=== PATIENT | female | born 1945 | race African-American/Black ===

== ENCOUNTER 2016-06-21 13:24 | Inpatient (IN) ==
[2016-06-21] MEDS ORDERED: ETOMIDATE 20 MG/10 ML VIAL IV ONE (13:26)
[2016-06-21] MEDS ORDERED: VECURONIUM 10 MG VIAL IV ONE ×2 (13:26→15:07)
[2016-06-21] MEDS ORDERED: SODIUM CHLORIDE 0.9% 500 ML IV STA (13:35)
[2016-06-21] MEDS ORDERED: ETOMIDATE 20 MG/10 ML VIAL IV STA (13:39)
[2016-06-21] MEDS ORDERED: VECURONIUM 10 MG VIAL IV STA ×2 (13:39→15:11)
--- NOTE | 2016-06-21 13:41 | EKG Report ---
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
--- NOTE | 2016-06-21 13:53 | XRay Report ---
Portable chest Date: 06/21/2016 Clinical history: Alteration of consciousness Comparison: 11/09/2015 Technique: Portable AP supine chest Findings: The heart is borderline in size with uncoiling of the aorta. Chronic scarring in the lungs with minimal atelectasis. The endotracheal tube is in satisfactory position. Nasogastric tube seen entering the stomach. Stable mediastinum and osseous structures. Impression: Endotracheal tube and nasogastric tube in satisfactory position. Chronic scarring in the lungs with minimal atelectasis. PROCEDURE INTERPRETED AT [facility] DEPARTMENT OF RADIOLOGY Final Report Signed by: Dr. Elvia De La Cruz
[2016-06-21 14:03] LABS: Basophils # 0.1 10*3/uL (0.0-0.2); Basophils % 0.5 % (0.0-0.8); Eosinophils # 0.7 10*3/uL (0.0-0.87); Eosinophils % 6.8 % (0.00-10.9); Hematocrit 46.1 VOL% (35.7-47.0); Hemoglobin 14.3 GM/DL (12.0-16.0); Immature Granulocytes % 0.5 %; Immature Granulocytes Absolute 0.05 #; Lymphocytes # 4.9 10*3/uL (1.4-4.0); Lymphocytes % 44.7 % (21.3-54.2); Mean Corpuscular Hemoglobin 30 PG (27-34); Mean Corpuscular Volume 97.3 FL (87-102); Mean Platelet Volume 10.8 FL (9.6-12.0); Monocytes # 0.8 10*3/uL (0.11-0.8); Monocytes % 6.9 % (1.7-12.7); Neutrophils # 4.4 10*3/uL (1.4-7.4); Neutrophils % 40.6 % (38.7-73.9); Platelet Count 244 T/CUMM (130-400); Red Blood Count 4.74 MC/CUMM (3.8-5.5); Red Cell Distribution Width 14.1 % (9.3-17.3); White Blood Count 10.9 T/CUMM (4-12)
--- NOTE | 2016-06-21 14:08 | Emergency Department Note ---
Archie Culp Meredith, am scribing for, and in the presence of, Sreedhar Hensley MD 13: 44. Shellie Culp James D, MD, personally performed the services described in this documentation, ascribed by Sis Almanza in my presence, and it is both accurate and complete . Arrival - Arrival Chief Complaint: Altered Mental Status ED Nursing Triage Note: ALTERED MENTAL STATUS Mode of Arrival: Stretcher Limitations: Altered Mental Status (obtunded) Source: EMS, Old Records Reviewed, RN Notes Reviewed Time Seen by Provider: 06/21/16 13:35 - History of Present Illness HPI Narrative: Pt is a 71 y/o black female brought to the ED by EMS for c/o altered level of consciousness (GCS:9). EMS reports witnessed seizure on their arrival. She has a history of CAD, HTN, [place], TIA, NIDDM, HLD, gout, RA, and right kidney removal. Onset (ago): minute(s) Allergies/Adverse Reactions: Allergies Allergy/AdvReac Type Severity Reaction Status Date / Time codeine Allergy Palpitation Verified 11/08/15 12:53 s Home Medications: Home Medications Medication Instructions Recorded Confirmed Type Amlodipine Besylate 2.5 mg PO DAILY 11/08/15 11/08/15 History Atenolol/Chlorthalidone 1 tablet PO DAILY 11/08/15 11/08/15 History [Atenolol-Chlorthalidone 50-25] Gabapentin 300 mg PO BID 11/08/15 11/08/15 History Glimepiride 2 mg PO DAILY 11/08/15 11/08/15 History Isosorbide Mononitrate [Isosorbide 30 mg PO DAILY 11/08/15 11/08/15 History Mononitrate ER] Metformin HCl 1,000 mg PO BID 11/08/15 11/08/15 History Nitroglycerin Sl Tab [Nitrostat] 0.4 mg SL Q5M PRN 11/08/15 11/08/15 History Pregabalin [Lyrica] 75 mg PO DAILY 11/08/15 11/08/15 History Ranolazine [Ranexa] 500 mg PO BID 11/08/15 11/08/15 History Valsartan 80 mg PO DAILY 11/08/15 11/08/15 History buPROPion SR [Wellbutrin Sr] 150 mg PO DAILY 11/08/15 11/08/15 History Aspirin Tab 325 mg PO DAILY #30 tablet 11/14/15 Rx Ondansetron Tab [Zofran Tab] 4 mg PO Q4H PRN #30 tablet 11/14/15 Rx Review of System - Review of System ROS unobtainable: due to mental status (obtunded) - Review of System Neurological: Present: as per HPI, other (seizure activity and AMS) Medical,Surgical,& Family Hx - Medical History Cardio: History of: CAD, Hypertension, [place] Neurology: History of: TIA Endocrine: History of: Diabetes Mellitus (NIDDM), Dyslipidemia Rheumatology: History of;: Gout, Rheumatoid Arthritis - Surgical History Cardiac Surgeries: Sugical HX of: Cardiac Catheterization (with 2 or 3 stents ( patient is unsure)) Thoracic Surgeries: Surgical HX of;: Nephrectomy (left kidney removal (1986)) Reproductive Surgeries: Surgical HX of;: Hysterectomy - Family History Family History: Reports;: Family Diabetes (sisters), Family Heart Disease ( sister) - Social History Smoking Status: Smoker, status unknown Exam Physical Examination: GENERAL: This is an obese black female. Patient is obtunded. VITAL SIGNS: Temperature: 98.2, Pulse: 115, Respirations: 6, Blood pressure: 209 /112, O2 Satuartion: 81 HEENT: Head is normocephalic and atraumatic. Gaze preference to the left. Oropharynx is benign with moist mucous membranes. NECK: Neck is soft and supple There are no masses. There is no lymphadenopathy. LUNGS: Lungs are clear to auscultation bilaterally. Chest rises symmetrically. CV: Heart is tachycardic and regular rhythm without murmurs, rubs, or gallops. ABDOMEN: Abdomen is soft. There are no abnormal masses palpated. There is no organomegaly. Bowel sounds are present and active. SKIN: Skin is warm and dry. No rash. EXTREMITIES: There is no pedal edema. NEUROLOGIC: Left arm and leg flaccid paralysis. Incoherent speech. Vital Signs: Vital Signs Temperature 98.2 F 06/21/16 13:24 Pulse Rate 86 06/21/16 14:25 Respiratory Rate 12 06/21/16 14:25 Blood Pressure 169/109 06/21/16 14:25 O2 Sat by Pulse Oximetry 100 06/21/16 14:25 Course - Consultations Consultation #1: Hospitalist was consulted. Pt will be admitted to their service. Time: 14:59 Results - Labs CBC & BMP: 06/21/16 13:51 06/21/16 13:51 Lab Results: I have reviewed the patients labs Labs: Laboratory Tests 06/21/16 06/21/16 13:51 13:51 WBC 10.9 RBC 4.74 Hgb 14.3 Hct 46.1 MCHC 31.0 L Plt Count 244 Lymph # (Auto) 4.9 H INR 1.0 PT Patient/Control Mix 10.0 Circ Anticoag PTT 24.6 Laboratory Tests 06/21/16 13:51 INR 1.0 Laboratory Tests 06/21/16 06/21/16 13:51 14:27 ABG pH 7.300 L ABG pCO2 40.8 ABG pO2 314.0 H ABG HCO3 19.5 L ABG Total CO2 17.6 L ABG O2 Saturation 99.4 ABG Base Excess -6.1 L Ammonia 36 H Laboratory Tests 06/21/16 14:18 Urine pH 6.0 Ur Specific [place] 1.009 Urine Protein >=500 Urine Glucose (UA) 50 Urine Blood Small Urine Urobilinogen < 2.0 H Urine RBC 2 Urine WBC <1 Urine Bacteria Occasional Laboratory Tests 06/21/16 13:51 Sodium 141 Potassium 4.0 Chloride 108 H Carbon Dioxide 19 L Anion Gap 18.0 H BUN 16 Creatinine 2.00 H Glucose 194 H Ammonia 36 H Total Protein 8.4 H Globulin 4.6 H Albumin/Globulin Ratio 0.8 L - EKG EKG results: interpreted by ERMD - Impressions EKG: Atrial flutter with rate of 116, ST segment depression anteriorly and laterally. - Diagnostic Findings Procedure: Chest x-ray: report reviewed by me (Endotracheal tube and nasogastric tube in satisfactory position. Chronic scarring in the lungs with minimal atelectasis. ), CT: report reviewed by me (Head: No acute intracranial process as compared to the previous study. Chornic right MCA infarct. Periventriclar small vessle disease. ) Critical Care Time Critical Care Time: Yes Total Critical Care Time: 60 Attestation: Pt was sedated and intubated. She had initial vent management. Pt was given Keppra and Labetalol. Disposition Clinical Impression: Altered mental status, Seizure, Essential (primary) hypertension Disposition: Still a Patient Condition: Critical
[2016-06-21 14:13] LABS: Partial Thromboplastin Time 24.6 SECS (0-40)
[2016-06-21] MEDS ORDERED: LABETALOL 20 MG/4 ML SYRINGE IV STA (14:15)
[2016-06-21] MEDS ORDERED: LABETALOL 20 MG/4 ML SYRINGE IV ONE (14:16)
[2016-06-21 14:22] LABS: Ammonia 36 UMOL/L (11-32)
[2016-06-21 14:29] LABS: Apearance,Urine CLEAR (Clear); Bacteria,Urine Occasional /HPF (Few); Bilirubin,Urine Negative (Negative); Blood, Urine Small mg/dL (Negative); Glucose,Urine (UA) 50 mg/dL (Negative); Ketones,Urine Negative (Negative); Nitrite,Urine Negative (Negative); Protein,Urine >=500 MG/DL; RBC,Urine 2 /HPF (0-4); Urine Color Straw (Yellow); Urine Specific Gravity 1.009 (1.001-1.035); Urine Urobilinogen < 2.0 EU/DL (0.2-1.0); WBC,Urine <1 /HPF (0-6)
[2016-06-21 14:30] LABS: ABG Base Excess -6.1 MMOL/L (-2.5-2.5); ABG HCO3 19.5 MMOL/L (20-26); ABG Oxygen Saturation 99.4 % (95-100); ABG PCO2 40.8 MM HG (35-48); ABG TCO2 17.6 MMOL/L (23-27)
[2016-06-21] MEDS ORDERED: MIDAZOLAM 2 MG/2 ML VIAL IV STA ×2 (14:30→14:46)
[2016-06-21] MEDS ORDERED: MIDAZOLAM 2 MG/2 ML VIAL ONE ×2 (14:30→14:46)
--- NOTE | 2016-06-21 14:35 | CT Report ---
History: Mental status changes Date: 06/21/2016 Study: CT head without contrast Comparison exam: November 08, [address] sections were obtained through the head without IV contrast. Total DLP measures 1073.1 mGy*cm. The ventricles are midline in position without evidence of hydrocephalus. There is a wedge-shaped area of chronic ischemia in a right MCA distribution involving the right temporoparietal area as before, measuring at least 6 cm maximum diameter. There is no parenchymal hemorrhage or mass effect or gross CT evidence of acute cortical stroke. There is no extra-axial hematoma. There is a small amount of ill-defined low density in the periventricular white matter without mass effect compatible with changes small vessel disease. There is no acute extra-axial hematoma. There is no acute abnormality of the calvarium. The partially visualized paranasal sinuses and mastoid air cells are clear. There is moderate calcification in the distal carotid arteries bilaterally. Impression: No acute intracranial process as compared to the previous study. Chronic right MCA infarct. Periventricular small vessel disease PROCEDURE INTERPRETED AT [facility] DEPARTMENT OF RADIOLOGY Final Report Signed by: Dr. Sandhya Mathew
[2016-06-21 14:38] LABS: Alanine Aminotransferase 19 U/L (13-56); Albumin 3.8 G/DL (3.4-5.0); Alkaline Phosphatase 100 U/L (45-117); Aspartate Amino Transferase 17 U/L (0-37); Bilirubin,Total < 0.39 MG/DL (0.2-1.0); Blood Urea Nitrogen 16 MG/DL (7-18); Calcium 9.4 MG/DL (8.5-10.1); Glucose 194 MG/DL (74-106); Osmolality,Calculated 286.3 MOS/KG (273-304); Sodium 141 MMOL/L (136-145); Total Protein 8.4 G/DL (6.4-8.3)
[2016-06-21] MEDS ORDERED: LABETALOL 100 MG/20 ML VIAL IV ONE (14:56)
[2016-06-21] MEDS ORDERED: LABETALOL 100 MG/20 ML VIAL IV STA (14:57)
[2016-06-21] MEDS ORDERED: levETIRAcetam 500 MG/5 ML VIAL IV ONE ×2 (15:05→15:06)
[2016-06-21] MEDS ORDERED: ACETAMINOPHEN 325 MG TABLET PO PRN (15:08)
[2016-06-21] MEDS ORDERED: DOCUSATE SODIUM 100 MG CAPSULE PO PRN (15:08)
[2016-06-21] MEDS ORDERED: ONDANSETRON 4 MG/2 ML VIAL IV PRN (15:08)
[2016-06-21] MEDS: MIDAZOLAM 100 MG in SODIUM CHLORIDE 0.9% 80 ML IV SCH (15:13)
[2016-06-21] MEDS ORDERED: LABETALOL 100 MG/20 ML VIAL IV PRN (15:49)
--- NOTE | 2016-06-21 15:58 | Hospitalist History & Physical ---
Assessment and Plan - Time spent with patient Time spent with patient: Greater than 30 minutes (1) Altered mental status Status: Acute Assessment and plan: Given the history I am concerned she has had another significant stroke, especially with her acute presentation and her elevated blood pressure. Also must consider postictal after witnessed seizure. I am admitting to ICU, start IV Cinthia, Neurology consult and repeat CT in the am. Her BP is elevated but I don't want to lower to quickly in light of concerns for acute ischemic stroke but could her HTN being uncontrolled caused her presentation. Current Visit: Yes Qualifiers: Altered mental status type: unspecified Qualified Code(s): R41.82 - Altered mental status, unspecified (2) Seizure Status: Acute Assessment and plan: She did present with witness activity as stated start IV Cinthia, Neuro consult and PRN meds Current Visit: Yes (3) Hypertensive urgency, malignant Status: Acute Assessment and plan: This could have cause symptoms but also must consider new CVA and don't want to lower BP to rapidly. Current Visit: Yes (4) IDDM (insulin dependent diabetes mellitus) Status: Acute Assessment and plan: will want to keep control in light of her presentation as studies have shown CBG 141-180 have better outcomes in case of acute infarct. Sliding scale insulin Current Visit: Yes History of Present Illness Chief complaint: Seizure, ALOC History of present illness: Ms. Mcconnell is a 71 year old female with several medical problems who presented via EMS after having a witnessed seizure. According to her daughter who is at her bedside she told other family members earlier that she did not feel well and they suggested to her to lay down. From the history she was heading towards the bathroom when she may have developed LOC but was caught by family members and lowered to the floor. EMS was called and per their report she was actively seizing. She was brought here at [place] where ER staff states she had a left gazed and pupils did react. She was then intubated for airway protection. Home Medications Medication Instructions Recorded Confirmed Type Atenolol/Chlorthalidone 1 tablet PO DAILY 11/08/15 11/08/15 History [Atenolol-Chlorthalidone 50-25] Glimepiride 2 mg PO DAILY 11/08/15 11/08/15 History Isosorbide Mononitrate [Isosorbide 30 mg PO DAILY 11/08/15 11/08/15 History Mononitrate ER] Metformin HCl 1,000 mg PO BID 11/08/15 11/08/15 History Nitroglycerin Sl Tab [Nitrostat] 0.4 mg SL Q5M PRN 11/08/15 11/08/15 History Pregabalin [Lyrica] 75 mg PO DAILY 11/08/15 11/08/15 History Ranolazine [Ranexa] 500 mg PO BID 11/08/15 11/08/15 History Valsartan 80 mg PO DAILY 11/08/15 11/08/15 History buPROPion SR [Wellbutrin Sr] 150 mg PO DAILY 11/08/15 11/08/15 History Aspirin Tab 325 mg PO DAILY #30 tablet 11/14/15 Rx Atorvastatin [Lipitor] 20 mg PO DAILY 06/21/16 06/21/16 History amLODIPine [Norvasc] 10 mg PO DAILY 06/21/16 06/21/16 History Allergies Allergy/AdvReac Type Severity Reaction Status Date / Time codeine Allergy Palpitation Verified 11/08/15 12:53 s Medical,Surgical,& Family Hx - Medical History Cardio: History of: CAD, Hypertension, [place] Neurology: History of: Cerebrovascular Accident, TIA Endocrine: History of: Diabetes Mellitus (NIDDM), Dyslipidemia Rheumatology: History of;: Gout, Rheumatoid Arthritis - Surgical History Cardiac Surgeries: Sugical HX of: Cardiac Catheterization (with 2 or 3 stents ( patient is unsure)) Thoracic Surgeries: Surgical HX of;: Nephrectomy (left kidney removal (1986)) Reproductive Surgeries: Surgical HX of;: Hysterectomy - Family History Family History: Reports;: Family Diabetes (sisters), Family Heart Disease ( sister) - Social History Smoking Status: Smoker, status unknown Frequency of Alcohol Use: Unknown Type of Drug Use: Unknown Marital Status: Unknown Lives With:: Children Functional capacity: independent ambulation ROS unobtainable: due to mental status Exam - Constitutional Vitals: Period Temp Pulse Resp BP Sys/Marin Pulse Ox Last 24 Hr 80-81 12-12 145-177/92-113 100-100 General appearance: over weight Exam: sedated and intubated black female with a left gaze - Head Head exam: Present: normocephalic, atraumatic - Eye Pupils: Present: KAYLEN - Respiratory Respiratory exam: Present: rhonchi - Cardiovascular Cardiovascular exam: Present: tachycardia - GI/Abdominal GI/Abdominal exam: Present: hypoactive bowel sounds, soft - Neurological Exam Neurological exam: Present: altered, other - Skin Skin exam: Present: warm, dry, intact Results - Labs CBC & BMP: 06/21/16 13:51 06/21/16 13:51 - EKG EKG results: sinus rhythm EKG shows: tachycardia, sinus rhythm - Diagnostic Findings Procedure: Chest x-ray: report reviewed by me (ET in place with chronic scarring ), CT: report reviewed by me (chronic right MCA CVA) Quality Measures - Stroke Onset of Symptoms Date: 06/21/16 Contraindication Not Initiating IV-tPA: Sz @ onset - postictal
[2016-06-21] MEDS ORDERED: GLUCAGON 1 MG VIAL IM PRN (16:12)
[2016-06-21] MEDS ORDERED: DEXTROSE 50% 25 GM/50 ML VIAL IV PRN (16:12)
[2016-06-21] MEDS ORDERED: LABETALOL 20 MG/4 ML SYRINGE IV PRN (16:17)
[2016-06-21] MEDS ORDERED: ACETAMINOPHEN 325 MG SUPP RECTAL PRN (16:18)
[2016-06-21] MEDS: ENOXAPARIN 40 MG/0.4 ML SYRINGE SUBCUT SCH (17:48)
[2016-06-21] MEDS: CLINDAMYCIN INJ 900 MG in PREMIX 1 EACH IV SCH (17:49)
[2016-06-21] MEDS ORDERED: INSULIN LISPRO 100 UNIT/ML SUBCUT SCH (18:00)
[2016-06-21] MEDS: INSULIN LISPRO 100 UNIT/ML SUBCUT SCH (18:28)
[2016-06-21] MEDS ORDERED: SODIUM CHLORIDE 0.9% 500 ML IV ONE (21:45)
[2016-06-21] MEDS: PANTOPRAZOLE 40 MG VIAL IV SCH (22:25)
[2016-06-22] MEDS: INSULIN LISPRO 100 UNIT/ML SUBCUT SCH ×4 (01:00→18:02)
[2016-06-22] MEDS: CLINDAMYCIN INJ 900 MG in PREMIX 1 EACH IV SCH ×3 (01:15→16:49)
[2016-06-22 05:22] LABS: Basophils % 0.4 % (0.0-0.8); Eosinophils # 0.3 10*3/uL (0.0-0.87); Eosinophils % 2.7 % (0.00-10.9); Hematocrit 35.3 VOL% (35.7-47.0); Immature Granulocytes % 0.3 %; Immature Granulocytes Absolute 0.03 #; Lymphocytes # 2.5 10*3/uL (1.4-4.0); Lymphocytes % 22.6 % (21.3-54.2); Mean Corpuscular HGB Conc 32.3 GM/DL (32-36); Mean Corpuscular Hemoglobin 30 PG (27-34); Mean Corpuscular Volume 93.4 FL (87-102); Mean Platelet Volume 11.8 FL (9.6-12.0); Monocytes # 1.1 10*3/uL (0.11-0.8); Monocytes % 9.9 % (1.7-12.7); Neutrophils % 64.1 % (38.7-73.9); Red Cell Distribution Width 14.4 % (9.3-17.3); White Blood Count 10.9 T/CUMM (4-12)
[2016-06-22 05:24] LABS: Hemoglobin 11.4 GM/DL (12.0-16.0); Platelet Count 180 T/CUMM (130-400); Red Blood Count 3.78 MC/CUMM (3.8-5.5)
[2016-06-22 05:33] LABS: Albumin 2.8 G/DL (3.4-5.0); Bilirubin,Total 0.4 MG/DL (0.2-1.0); Calcium 8.5 MG/DL (8.5-10.1); Osmolality,Calculated 290.7 MOS/KG (273-304); Total Protein 6.1 G/DL (6.4-8.3)
[2016-06-22 05:49] LABS: Risk Ratio 4.49; VLDL CHOLESTEROL 41.8 MG/DL
[2016-06-22] MEDS: MIDAZOLAM 100 MG in SODIUM CHLORIDE 0.9% 80 ML IV SCH ×2 (06:40→18:51)
--- NOTE | 2016-06-22 06:49 | CT Report ---
CT head/brain wo con Indication: Seizure. Stroke. Comparison: CT head 06/21/2016. Technique: CT of the brain was performed without administration of intravenous contrast. Findings: Hypoattenuation of cortex and white matter within the right parietal lobe is again demonstrated with little interval progression or evolution since comparison. There has been some increase in hypoattenuation within the right thalamus. Significant motion artifact is present. Little change in the brain is otherwise suggested given the degree of motion. The basal cisterns are patent. No significant abnormality is demonstrated to involve the posterior fossa or cerebellum. Orbits and globes demonstrate no evidence of significant pathology. Air-fluid levels within the sphenoid sinuses and mucosal thickening of posterior ethmoid air cells is noted bilaterally. No significant abnormality is demonstrated to involve the mastoid air cells. The calvarium and overlying soft tissues demonstrate no evidence of acute pathology. Impression: 1. Significant motion artifact blurs the cerebral hemispheres. New hypoattenuation in the right thalamus and deep white matter of the right parietal lobe is suggested which may reflect evolution of infarction. Cortical infarction of the right parietal lobe is otherwise unchanged. 06/22/2016 6:36 AM PROCEDURE INTERPRETED AT [facility] DEPARTMENT OF RADIOLOGY Final Report Signed by: Dr. Gianni Nelson
--- NOTE | 2016-06-22 07:36 | Pulmonology Consult Note ---
Assessment and Plan (1) Altered mental status Status: Acute Assessment and plan: Altered mental status due to seizure and apparent new thalamic stroke. Defer to neurology. Continue with airway control and mechanical ventilation until neurologic status is improved. Current Visit: Yes (2) IDDM (insulin dependent diabetes mellitus) Status: Acute Assessment and plan: Sliding scale insulin. Current Visit: Yes (3) Seizure Status: Acute Assessment and plan: Patient had witnessed grand mal seizure and is on anti-seizure medications. Defer to neurology. Current Visit: Yes (4) CVA (cerebral vascular accident) Status: Acute Assessment and plan: Brain CT this morning indicates a right thalamic stroke superimposed on previous right parietal hemisphere stroke. Again defer to neurology. Current Visit: No Qualifiers: CVA mechanism: unspecified Qualified Code(s): I63.9 - Cerebral infarction, unspecified (5) Acute respiratory failure Status: Acute Assessment and plan: Patient is on the ventilator and intubated due to decreased level of consciousness. She is on empiric antibiotics for possible aspiration. We will adjust ventilator. PO2 is in the 300s on 100% oxygen. She has a mildly acidotic pH. Will increase minute ventilation and reduce FiO2. Current Visit: Yes History of Present Illness Chief complaint: decreased level of consciousness and seizure History of present illness: Ms. Mcconnell is a 71 year old female who came into the emergency room by ambulance. Apparently she became faint walking across for was caught by her family and then had a seizure. She was intubated in the emergency room and is now on the ventilator. Initial brain CT showed evidence of an old right parietal stroke. CT this morning suggests a superimposed right thalamic stroke. She is diabetic. She has a history of a known previous stroke. She is on antibiotics for possible aspiration pneumonia. I was asked to see her to follow her from a pulmonary standpoint. Home Medications Medication Instructions Recorded Confirmed Type Atenolol/Chlorthalidone 1 tablet PO DAILY 11/08/15 06/21/16 History [Atenolol-Chlorthalidone 50-25] Glimepiride 2 mg PO DAILY 11/08/15 06/21/16 History Isosorbide Mononitrate [Isosorbide 30 mg PO DAILY 11/08/15 06/21/16 History Mononitrate ER] Metformin HCl 1,000 mg PO BID 11/08/15 06/21/16 History Nitroglycerin Sl Tab [Nitrostat] 0.4 mg SL Q5M PRN 11/08/15 06/21/16 History Pregabalin [Lyrica] 75 mg PO DAILY 11/08/15 06/21/16 History Ranolazine [Ranexa] 500 mg PO BID 11/08/15 06/21/16 History Valsartan 80 mg PO DAILY 11/08/15 06/21/16 History buPROPion SR [Wellbutrin Sr] 150 mg PO DAILY 11/08/15 06/21/16 History Aspirin Tab 325 mg PO DAILY #30 tablet 11/14/15 06/21/16 Rx Atorvastatin [Lipitor] 20 mg PO DAILY 06/21/16 06/21/16 History amLODIPine [Norvasc] 10 mg PO DAILY 06/21/16 06/21/16 History Allergies Allergy/AdvReac Type Severity Reaction Status Date / Time codeine Allergy Palpitation Verified 11/08/15 12:53 s ROS unobtainable: due to endotracheal tube, due to mental status Exam (Pulmon) H&P - Constitutional Vitals: Period Temp Pulse Resp BP Sys/Marin Pulse Ox Last 24 Hr 97.0 F-97.6 F 73-86 10-16 81-192/57-118 100-100 Exam: Vital signs are normal. Oxygen saturation 100%. Pupils are small but react sluggishly to light. She is moving about when off sedation, but presently on Versed infusion. Orotracheal tube in place. Neck supple no bruits. Chest reveals a few rhonchi on the right side. Heart normal rate rhythm no murmurs. Abdomen soft no masses. Extremities no clubbing cyanosis edema. Patient not spontaneously moving any extremities. Medical,Surgical,& Family Hx - Medical History Cardio: History of: CAD, Hypertension, [place] Neurology: History of: Cerebrovascular Accident, TIA Endocrine: History of: Diabetes Mellitus (NIDDM), Dyslipidemia Rheumatology: History of;: Gout, Rheumatoid Arthritis - Surgical History Cardiac Surgeries: Sugical HX of: Cardiac Catheterization (with 2 or 3 stents ( patient is unsure)) Thoracic Surgeries: Surgical HX of;: Nephrectomy (left kidney removal (1986)) Reproductive Surgeries: Surgical HX of;: Hysterectomy - Family History Family History: Reports;: Family Diabetes (sisters), Family Heart Disease ( sister) - Social History Smoking Status: Smoker, status unknown Frequency of Alcohol Use: Unknown Type of Drug Use: Unknown Results - Labs CBC & BMP: 06/22/16 04:26 06/22/16 04:26 Lab Results: I have reviewed the past 24 hour labs - Diagnostic Findings Procedure: Chest x-ray: image reviewed by me (ET tube in good position. Chronic patchy scarring in right upper lobe.) Quality Measures - Stroke Onset of Symptoms Date: 06/21/16
[2016-06-22 08:14] LABS: Allen Test Positive; Pt O2 Delivery Device Ventilator
[2016-06-22 08:15] LABS: ABG Base Excess -1.8 MMOL/L (-2.5-2.5); ABG HCO3 22.9 MMOL/L (20-26); ABG Oxygen Saturation 99.1 % (95-100); ABG PCO2 27.6 MM HG (35-48); ABG PH 7.481 (7.35-7.45); ABG TCO2 18.3 MMOL/L (23-27)
[2016-06-22] MEDS: CIPROFLOXACIN INJ 200 MG in PREMIX 1 EACH IV SCH ×2 (08:47→20:46)
[2016-06-22] MEDS: PANTOPRAZOLE 40 MG VIAL IV SCH ×2 (08:47→20:44)
--- NOTE | 2016-06-22 09:00 | Neurology Consult Note ---
History of Present Illness History of present illness: Patient is unable to provide me any history. History basically obtained from the chart. Ms. Mcconnell is a 71 year old female with several medical problems who presented via EMS after having a witnessed seizure. According to her daughter she did not feel well and they suggested to her to lay down. From the history she was heading towards the bathroom when she may have developed LOC but was caught by family members and lowered to the floor. EMS was called and per their report she was actively seizing. She was brought here at [place] where ER staff states she had a left gazed and pupils did react. She was then intubated for airway protection. She has not had anymore seizures. Home Medications Medication Instructions Recorded Confirmed Type Atenolol/Chlorthalidone 1 tablet PO DAILY 11/08/15 06/21/16 History [Atenolol-Chlorthalidone 50-25] Glimepiride 2 mg PO DAILY 11/08/15 06/21/16 History Isosorbide Mononitrate [Isosorbide 30 mg PO DAILY 11/08/15 06/21/16 History Mononitrate ER] Metformin HCl 1,000 mg PO BID 11/08/15 06/21/16 History Nitroglycerin Sl Tab [Nitrostat] 0.4 mg SL Q5M PRN 11/08/15 06/21/16 History Pregabalin [Lyrica] 75 mg PO DAILY 11/08/15 06/21/16 History Ranolazine [Ranexa] 500 mg PO BID 11/08/15 06/21/16 History Valsartan 80 mg PO DAILY 11/08/15 06/21/16 History buPROPion SR [Wellbutrin Sr] 150 mg PO DAILY 11/08/15 06/21/16 History Aspirin Tab 325 mg PO DAILY #30 tablet 11/14/15 06/21/16 Rx Atorvastatin [Lipitor] 20 mg PO DAILY 06/21/16 06/21/16 History amLODIPine [Norvasc] 10 mg PO DAILY 06/21/16 06/21/16 History Allergies Allergy/AdvReac Type Severity Reaction Status Date / Time codeine Allergy Palpitation Verified 11/08/15 12:53 s ROS unobtainable: due to endotracheal tube Medical,Surgical,& Family Hx - Medical History Cardio: History of: CAD, Hypertension, [place] Neurology: History of: Cerebrovascular Accident, TIA Endocrine: History of: Diabetes Mellitus (NIDDM), Dyslipidemia Rheumatology: History of;: Gout, Rheumatoid Arthritis - Surgical History Cardiac Surgeries: Sugical HX of: Cardiac Catheterization (with 2 or 3 stents ( patient is unsure)) Thoracic Surgeries: Surgical HX of;: Nephrectomy (left kidney removal (1986)) Reproductive Surgeries: Surgical HX of;: Hysterectomy - Family History Family History: Reports;: Family Diabetes (sisters), Family Heart Disease ( sister) - Social History Smoking Status: Smoker, status unknown Frequency of Alcohol Use: Unknown Type of Drug Use: Unknown Exam - Constitutional Vitals: Period Temp Pulse Resp BP Sys/Marin Pulse Ox Last 24 Hr 97.0 F-97.6 F 73-86 10-16 81-192/57-118 100-100 Exam: GENERAL: Patient is in no acute distress. NECK: Neck is supple. There is no JVD. No carotid bruits present. No thyroid masses. CVS: First and second heart sounds are normal. There is no S3 present. Regular rate and rhythm. RESPIRATORY: Lungs are clear to auscultation without any rales or rhonchi. ABDOMEN: Soft and non-tender. Bowel sounds are present. There is no hepatosplenomegaly. EXT: There is no palpable edema. Peripheral pulses are present. Skin: No rashes Central Nervous system: General: Sedated on vent Speech: On vent Comprehension: On vent Facial expressions: Normal Cranial Nerves: Pupils are sluggish but reactive to light. Doll's head eye moves are positive. No facial asymmetry seen. Motor: Bulk and Tone is normal. Strength cannot be assessed Sensory: Cannot be assessed Reflexes: 1+ and symmetrical Cerebellar function: Cannot be assessed Gait: Cannot be assessed Results - Labs CBC & BMP: 06/22/16 04:26 06/22/16 04:26 Assessment and Plan (1) Seizure Status: Acute Assessment and plan: Change Keppra to 500 mg IV every 8 The stroke is a possibility but I don't think that CT scan is very conclusive at this point. Continue Lovenox for now Continue supportive management. Current Visit: Yes
--- NOTE | 2016-06-22 09:56 | Hospitalist Progress Note ---
Assessment and Plan (1) Altered mental status Status: Acute Assessment and plan: Given the history I am concerned she has had another significant stroke, especially with her acute presentation and her elevated blood pressure. Also must consider postictal after witnessed seizure. I am admitting to ICU, start IV Keppra, Neurology consult and repeat CT in the am. Her BP is elevated but I don't want to lower to quickly in light of concerns for acute ischemic stroke but could her HTN being uncontrolled caused her presentation. 06/22/16: it appears she did become more alert on yesterday evening and her sedation was increased. Once weaning from vent began will hopefully be able to exam her from a neurology standpoint. Current Visit: Yes Qualifiers: Altered mental status type: unspecified Qualified Code(s): R41.82 - Altered mental status, unspecified (2) Seizure Status: Acute Assessment and plan: She did present with witness activity as stated start IV Keppra, Neuro consult and PRN meds 06/22/16: Keppra frequency increased and no more seizures since admissions appreciate Neurology recommendations. Current Visit: Yes (3) Hypertensive urgency, malignant Status: Acute Assessment and plan: This could have cause symptoms but also must consider new CVA and don't want to lower BP to rapidly. Current Visit: Yes (4) IDDM (insulin dependent diabetes mellitus) Status: Acute Assessment and plan: will want to keep control in light of her presentation as studies have shown CBG 141-180 have better outcomes in case of acute infarct. Sliding scale insulin Current Visit: Yes Hospitalist: Subjective Interval history: Patient did attempt to away from yesterday had a sedation increase. Repeat CT shows a possibility of new acute stroke. She has been seen by neurology who is increased in frequency of her Keppra. Once okay with pulmonology will attempt to wean from. To get a complete neurological exam. Exam - Constitutional Vitals: Period Temp Pulse Resp BP Sys/Marin Pulse Ox Last 24 Hr 97.0 F-97.6 F 73-86 10-16 81-192/57-118 100-100 General appearance: no acute distress - Head Head exam: Present: normocephalic, atraumatic - Eye Pupils: Present: KAYLEN - Respiratory Respiratory exam: Present: clear to auscultation bilaterally - Cardiovascular Cardiovascular exam: Present: regular rate and rhythm - GI/Abdominal GI/Abdominal exam: Present: hypoactive bowel sounds, soft - Neurological Exam Neurological exam: Present: other (sedated) - Skin Skin exam: Present: warm, intact Results - Labs CBC & BMP: 06/22/16 04:26 06/22/16 04:26 Quality Measures - Stroke Onset of Symptoms Date: 06/21/16
[2016-06-22] MEDS ORDERED: DEXMEDETOMIDINE 200 MCG in SODIUM CHLORIDE 0.9% 48 ML IV SCH (13:30)
[2016-06-22] MEDS: ENOXAPARIN 40 MG/0.4 ML SYRINGE SUBCUT SCH (16:48)
[2016-06-23] MEDS: INSULIN LISPRO 100 UNIT/ML SUBCUT SCH ×5 (00:22→23:21)
[2016-06-23] MEDS: CLINDAMYCIN INJ 900 MG in PREMIX 1 EACH IV SCH ×3 (01:06→16:28)
[2016-06-23 03:48] LABS: ABG Base Excess -3.2 MMOL/L (-2.5-2.5); ABG HCO3 21.7 MMOL/L (20-26); ABG Oxygen Saturation 98.3 % (95-100); ABG PCO2 31.5 MM HG (35-48); ABG PH 7.418 (7.35-7.45); ABG TCO2 18.1 MMOL/L (23-27); Allen Test Positive; Pt O2 Delivery Device Ventilator
[2016-06-23] MEDS: MIDAZOLAM 100 MG in SODIUM CHLORIDE 0.9% 80 ML IV SCH ×2 (06:29→21:25)
--- NOTE | 2016-06-23 06:55 | Pulmonology Progress Note ---
Pulmonary - PN: Subj Interval history: This 71-year-old lady came in following the seizure and decreased level of consciousness. She was found to have a new thalamic stroke on CT. She's had a previous right parietal stroke. She has pinpoint pupils and I suspect she may have had some pontine involvement as well but would defer to neurology there. ABGs are much improved. We will see if we can get her extubated. Stable from a pulmonary standpoint. Mental status will tell us whether we can get her weaned. If she is alert responsive and cooperative during CPAP trials and her mechanics are acceptable, then we will proceed. Exam (Progress Note) - Constitutional Vitals: Period Temp Pulse Resp BP Sys/Marin Pulse Ox Last 24 Hr 96.9 F-98.9 F 73-91 9-21 92-154/57-85 97-100 Exam: Patient is sedated. She is on a Versed infusion. Vital signs stable and normal. Systolic blood pressure in the 130s. Pupils are small. Face symmetrical. Orotracheal tube in place. Neck supple no bruits. Chest is clear equal breath sounds. Heart normal rate rhythm no murmurs. Abdomen soft nontender no masses. Extremities no clubbing cyanosis edema Results - Labs CBC & BMP: 06/22/16 04:26 06/22/16 04:26 Lab Results: I have reviewed the past 24 hour labs - Diagnostic Findings Procedure: Chest x-ray: image reviewed by me (lungs are clear. ET tube good position.) Assessment and Plan (1) Altered mental status Status: Acute Assessment and plan: Altered mental status due to seizure and apparent new thalamic stroke. Defer to neurology. Continue with airway control and mechanical ventilation until neurologic status is improved. 06/23/2016 patient had a new thalamic stroke superimposed on an old right parietal stroke. She's had a seizure. We'll need to evaluate mental status before deciding about extubation. Presently on a Versed infusion which will need to be held. Current Visit: Yes (2) IDDM (insulin dependent diabetes mellitus) Status: Acute Assessment and plan: Sliding scale insulin. 06/23/16 blood sugars well controlled on sliding scale. Current Visit: Yes (3) Seizure Status: Acute Assessment and plan: Patient had witnessed grand mal seizure and is on anti-seizure medications. Defer to neurology. 06/23/69 no further seizures. She is on medications for that and neurology is following. Current Visit: Yes (4) CVA (cerebral vascular accident) Status: Acute Assessment and plan: Brain CT this morning indicates a right thalamic stroke superimposed on previous right parietal hemisphere stroke. Again defer to neurology. 06/23/16 she's had an old right parietal stroke. Apparently a new right thalamic stroke. Her pinpoint pupils concerning for possible pontine involvement. Current Visit: No Qualifiers: CVA mechanism: unspecified Qualified Code(s): I63.9 - Cerebral infarction, unspecified (5) Acute respiratory failure Status: Acute Assessment and plan: Patient is on the ventilator and intubated due to decreased level of consciousness. She is on empiric antibiotics for possible aspiration. We will adjust ventilator. PO2 is in the 300s on 100% oxygen. She has a mildly acidotic pH. Will increase minute ventilation and reduce FiO2. 06/23/16 presently we are hyperventilating a little because of the stroke. When able to hold sedation and do CPAP with mechanics, we will do that and hopefully can wean. Depends on her mental status. Current Visit: Yes
--- NOTE | 2016-06-23 08:23 | Hospitalist Progress Note ---
Assessment and Plan (1) Altered mental status Status: Acute Assessment and plan: Given the history I am concerned she has had another significant stroke, especially with her acute presentation and her elevated blood pressure. Also must consider postictal after witnessed seizure. I am admitting to ICU, start IV Keppra, Neurology consult and repeat CT in the am. Her BP is elevated but I don't want to lower to quickly in light of concerns for acute ischemic stroke but could her HTN being uncontrolled caused her presentation. 06/22/16: it appears she did become more alert on yesterday evening and her sedation was increased. Once weaning from vent began will hopefully be able to exam her from a neurology standpoint. 06/23/16: CT done yesterday was inconclusive for an acute infarct. She appears to follow simple commands when sedation is turned around her symptoms could related to postictal state if she did have witnessed grand mal seizure. We'll continue with weaning from ventilator so we can assess her neurological functioning Current Visit: Yes Qualifiers: Altered mental status type: unspecified Qualified Code(s): R41.82 - Altered mental status, unspecified (2) Seizure Status: Acute Assessment and plan: She did present with witness activity as stated start IV Keppra, Neuro consult and PRN meds 06/22/16: Keppra frequency increased and no more seizures since admissions appreciate Neurology recommendations. 06/23/16: Witnessed seizures prior to admissions. She has not had any more seizures since being admitted. continue with Keppra Current Visit: Yes (3) Hypertensive urgency, malignant Status: Acute Assessment and plan: This could have cause symptoms but also must consider new CVA and don't want to lower BP to rapidly. Current Visit: Yes (4) IDDM (insulin dependent diabetes mellitus) Status: Acute Assessment and plan: will want to keep control in light of her presentation as studies have shown CBG 141-180 have better outcomes in case of acute infarct. Sliding scale insulin Current Visit: Yes Hospitalist: Subjective Interval history: Patient started on a weaning protocol as she appears to respond to simple commands when sedation is turned down. We will have to get her completely off seeing in a stable medications to get a better picture of her cognitive and neurological function. Her blood pressure is now controlled there were no overnight events. Exam - Constitutional Vitals: Period Temp Pulse Resp BP Sys/Marin Pulse Ox Last 24 Hr 96.9 F-98.9 F 73-91 9-21 99-154/58-85 97-100 General appearance: no acute distress - Head Head exam: Present: normocephalic, atraumatic - Eye Eye exam: Present: EOMI Pupils: Present: KAYLEN - Respiratory Respiratory exam: Present: rhonchi - Cardiovascular Cardiovascular exam: Present: regular rate and rhythm - GI/Abdominal GI/Abdominal exam: Present: normal bowel sounds, soft - Skin Skin exam: Present: warm, intact Results - Labs CBC & BMP: 06/22/16 04:26 06/22/16 04:26 Quality Measures - Stroke Onset of Symptoms Date: 06/21/16
[2016-06-23] MEDS: PANTOPRAZOLE 40 MG VIAL IV SCH ×2 (09:31→20:19)
[2016-06-23] MEDS: CIPROFLOXACIN INJ 200 MG in PREMIX 1 EACH IV SCH ×2 (09:33→20:18)
[2016-06-23 12:41] LABS: Allen Test Positive; Pt O2 Delivery Device Ventilator
[2016-06-23 12:42] LABS: ABG Base Excess -4.3 MMOL/L (-2.5-2.5); ABG HCO3 20.8 MMOL/L (20-26); ABG Oxygen Saturation 97.7 % (95-100); ABG PCO2 37.1 MM HG (35-48); ABG PH 7.354 (7.35-7.45); ABG TCO2 18.5 MMOL/L (23-27)
--- NOTE | 2016-06-23 13:01 | Event Note ---
Patient's ABGs look good on CPAP. Mechanics are not quite up to grade. She is still pretty drowsy and lethargic during CPAP trial. I don't think she's quite ready for extubation yet.
[2016-06-23] MEDS: ENOXAPARIN 40 MG/0.4 ML SYRINGE SUBCUT SCH (16:28)
[2016-06-24] MEDS: CLINDAMYCIN INJ 900 MG in PREMIX 1 EACH IV SCH ×3 (01:10→16:46)
[2016-06-24 03:33] LABS: ABG Base Excess -5.3 MMOL/L (-2.5-2.5); ABG Oxygen Saturation 97.2 % (95-100); ABG PCO2 29.5 MM HG (35-48); ABG PH 7.404 (7.35-7.45); ABG PO2 92.3 MM HG (80-95); ABG TCO2 16.7 MMOL/L (23-27); Allen Test Positive; Pt O2 Delivery Device Ventilator
[2016-06-24 04:25] LABS: Basophils % 0.2 % (0.0-0.8); Eosinophils # 0.5 10*3/uL (0.0-0.87); Eosinophils % 3.8 % (0.00-10.9); Hematocrit 31.8 VOL% (35.7-47.0); Hemoglobin 10.4 GM/DL (12.0-16.0); Immature Granulocytes % 0.6 %; Immature Granulocytes Absolute 0.08 #; Lymphocytes # 2.8 10*3/uL (1.4-4.0); Lymphocytes % 22.8 % (21.3-54.2); Mean Corpuscular HGB Conc 32.7 GM/DL (32-36); Mean Corpuscular Hemoglobin 30 PG (27-34); Mean Corpuscular Volume 92.2 FL (87-102); Mean Platelet Volume 11.4 FL (9.6-12.0); Monocytes # 1.2 10*3/uL (0.11-0.8); Neutrophils # 7.7 10*3/uL (1.4-7.4); Neutrophils % 62.6 % (38.7-73.9); Platelet Count 212 T/CUMM (130-400); Red Blood Count 3.45 MC/CUMM (3.8-5.5); Red Cell Distribution Width 14.5 % (9.3-17.3); White Blood Count 12.4 T/CUMM (4-12)
[2016-06-24 04:53] LABS: Calcium 8.3 MG/DL (8.5-10.1); Magnesium 1.7 MG/DL (1.8-2.4); Osmolality,Calculated 284.8 MOS/KG (273-304)
[2016-06-24] MEDS: INSULIN LISPRO 100 UNIT/ML SUBCUT SCH ×3 (05:24→17:45)
--- NOTE | 2016-06-24 07:09 | Pulmonology Progress Note ---
Pulmonary - PN: Subj Interval history: This 71-year-old lady came in following the seizure and decreased level of consciousness. She was found to have a new thalamic stroke on CT. She's had a previous right parietal stroke. She has pinpoint pupils and I suspect she may have had some pontine involvement as well but would defer to neurology there. ABGs are much improved. We will see if we can get her extubated. Stable from a pulmonary standpoint. Mental status will tell us whether we can get her weaned. If she is alert responsive and cooperative during CPAP trials and her mechanics are acceptable, then we will proceed. 06/24/16 patient is not waking up. Still requiring mechanical ventilatory support. Mechanics were not adequate for extubation yesterday. Mental status still not adequate for extubation. Exam (Progress Note) - Constitutional Vitals: Period Temp Pulse Resp BP Sys/Marin Pulse Ox Last 24 Hr 97.1 F-98.7 F 72-112 11-26 94-164/48-88 90-100 Exam: Patient is sedated. She is on a Versed infusion. Vital signs stable and normal. Systolic blood pressure in the 130s. Pupils are small. Face symmetrical. Orotracheal tube in place. Neck supple no bruits. Chest is clear equal breath sounds. Heart normal rate rhythm no murmurs. Abdomen soft nontender no masses. Extremities no clubbing cyanosis edema, little change from yesterday. Results - Labs CBC & BMP: 06/24/16 03:23 06/24/16 03:23 Lab Results: I have reviewed the past 24 hour labs - Diagnostic Findings Procedure: Chest x-ray: image reviewed by me (minimal left basilar interstitial infiltrate. ET tube in good position.) Assessment and Plan (1) Altered mental status Status: Acute Assessment and plan: Altered mental status due to seizure and apparent new thalamic stroke. Defer to neurology. Continue with airway control and mechanical ventilation until neurologic status is improved. 06/23/2016 patient had a new thalamic stroke superimposed on an old right parietal stroke. She's had a seizure. We'll need to evaluate mental status before deciding about extubation. Presently on a Versed infusion which will need to be held. 06/24/16. Recent seizure. Unable to withdraw Versed and wean at this point. Current Visit: Yes (2) IDDM (insulin dependent diabetes mellitus) Status: Acute Assessment and plan: Sliding scale insulin. 06/23/16 blood sugars well controlled on sliding scale. 06/24/16 continuing sliding scale. Current Visit: Yes (3) Seizure Status: Acute Assessment and plan: Patient had witnessed grand mal seizure and is on anti-seizure medications. Defer to neurology. 06/23/16 no further seizures. She is on medications for that and neurology is following. 06/24/16 continuing seizure medications. Current Visit: Yes (4) CVA (cerebral vascular accident) Status: Acute Assessment and plan: Brain CT this morning indicates a right thalamic stroke superimposed on previous right parietal hemisphere stroke. Again defer to neurology. 06/23/16 she's had an old right parietal stroke. Apparently a new right thalamic stroke. Her pinpoint pupils concerning for possible pontine involvement. 06/24/16 status post stroke. Defer to neurology. Current Visit: No Qualifiers: CVA mechanism: unspecified Qualified Code(s): I63.9 - Cerebral infarction, unspecified (5) Acute respiratory failure Status: Acute Assessment and plan: Patient is on the ventilator and intubated due to decreased level of consciousness. She is on empiric antibiotics for possible aspiration. We will adjust ventilator. PO2 is in the 300s on 100% oxygen. She has a mildly acidotic pH. Will increase minute ventilation and reduce FiO2. 06/23/16 presently we are hyperventilating a little because of the stroke. When able to hold sedation and do CPAP with mechanics, we will do that and hopefully can wean. Depends on her mental status. 06/24/16 patient did not do well with mechanics. Not able to get extubated. Mental status also preventing extubation at this point. Current Visit: Yes
[2016-06-24] MEDS: PANTOPRAZOLE 40 MG VIAL IV SCH ×2 (09:18→21:02)
[2016-06-24] MEDS: CIPROFLOXACIN INJ 200 MG in PREMIX 1 EACH IV SCH ×2 (09:19→21:02)
--- NOTE | 2016-06-24 11:11 | XRay Report ---
Exam: XR chest 1V portable Indication: Intubated Comparison study: 06/21/2016 Findings: Endotracheal tube terminates approximately 2 cm from the zoe, which is grossly similar to prior. Esophagogastric tube is not well visualized and, below the field of view. Cardiomediastinal silhouette are both stable from prior. There is no focal consolidation, pneumothorax or pleural effusion. Minimal basilar atelectasis is suspected.. Impression: Essentially stable position of endotracheal and esophagogastric tubes. Probable minimal bibasilar atelectasis. Otherwise, no significant change. PROCEDURE INTERPRETED AT [facility] DEPARTMENT OF RADIOLOGY Final Report Signed by: Sheldon Dooley
[2016-06-24] MEDS: ENOXAPARIN 40 MG/0.4 ML SYRINGE SUBCUT SCH (16:45)
[2016-06-24] MEDS: MIDAZOLAM 100 MG in SODIUM CHLORIDE 0.9% 80 ML IV SCH (17:38)
[2016-06-24] MEDS: HYDROmorphone 2 MG/1 ML VIAL IV PRN ×2 (19:52→23:52)
[2016-06-25] MEDS: INSULIN LISPRO 100 UNIT/ML SUBCUT SCH ×5 (00:06→23:11)
[2016-06-25] MEDS: CLINDAMYCIN INJ 900 MG in PREMIX 1 EACH IV SCH ×3 (01:17→17:02)
[2016-06-25 03:22] LABS: ABG Base Excess -4.3 MMOL/L (-2.5-2.5); ABG HCO3 19.1 MMOL/L (20-26); ABG Oxygen Saturation 98.7 % (95-100); ABG PCO2 29.9 MM HG (35-48); ABG PH 7.424 (7.35-7.45); ABG TCO2 20.1 MMOL/L (23-27); Allen Test Positive; Pt O2 Delivery Device Ventilator
[2016-06-25] MEDS: HYDROmorphone 2 MG/1 ML VIAL IV PRN ×2 (04:27→19:54)
--- NOTE | 2016-06-25 07:39 | Pulmonology Progress Note ---
Pulmonary - PN: Subj Interval history: This 71-year-old lady came in following the seizure and decreased level of consciousness. She was found to have a new thalamic stroke on CT. She's had a previous right parietal stroke. She has pinpoint pupils and I suspect she may have had some pontine involvement as well but would defer to neurology there. ABGs are much improved. We will see if we can get her extubated. Stable from a pulmonary standpoint. Mental status will tell us whether we can get her weaned. If she is alert responsive and cooperative during CPAP trials and her mechanics are acceptable, then we will proceed. 06/24/16 patient is not waking up. Still requiring mechanical ventilatory support. Mechanics were not adequate for extubation yesterday. Mental status still not adequate for extubation. 06/25/2016 patient is alert and nods to questions. 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 Little's both feet. Versed has been held since early this morning. We should be able to get her extubated today. Exam (Progress Note) - Constitutional Vitals: Period Temp Pulse Resp BP Sys/Marin Pulse Ox Last 24 Hr 97.3 F-98.9 F 65-83 10-22 101-152/54-81 96-100 Exam: Patient is alert and responsive. Vital signs stable and normal. Systolic blood pressure in the 130s. Pupils are small. Face symmetrical. Orotracheal tube in place. Neck supple no bruits. Chest is clear equal breath sounds. Heart normal rate rhythm no murmurs. Abdomen soft nontender no masses. Extremities no clubbing cyanosis edema. Results - Labs CBC & BMP: 06/24/16 03:23 06/24/16 03:23 Lab Results: I have reviewed the past 24 hour labs - Diagnostic Findings Procedure: Chest x-ray: image reviewed by me (ET tube in good position. Lungs essentially clear except for minimal basilar atelectasis.) Assessment and Plan (1) Altered mental status Status: Acute Assessment and plan: Altered mental status due to seizure and apparent new thalamic stroke. Defer to neurology. Continue with airway control and mechanical ventilation until neurologic status is improved. 06/23/2016 patient had a new thalamic stroke superimposed on an old right parietal stroke. She's had a seizure. We'll need to evaluate mental status before deciding about extubation. Presently on a Versed infusion which will need to be held. 06/24/16. Recent seizure. Unable to withdraw Versed and wean at this point. 06/25/16 patient had a seizure and evidence of a thalamic stroke. This morning with sedation held she is nodding to questions gripping on command and wiggling toes on command. Mental status much improved. Hopefully we can get her extubated shortly. She has had no further seizures. Current Visit: Yes (2) IDDM (insulin dependent diabetes mellitus) Status: Acute Assessment and plan: Sliding scale insulin. 06/23/16 blood sugars well controlled on sliding scale. 06/24/16 continuing sliding scale. 06/25/69 glucoses well controlled. Current Visit: Yes (3) Seizure Status: Acute Assessment and plan: Patient had witnessed grand mal seizure and is on anti-seizure medications. Defer to neurology. 06/23/16 no further seizures. She is on medications for that and neurology is following. 06/24/16 continuing seizure medications. 06/25/16 neurology following. Patient on seizure medications. No further seizures. Current Visit: Yes (4) CVA (cerebral vascular accident) Status: Acute Assessment and plan: Brain CT this morning indicates a right thalamic stroke superimposed on previous right parietal hemisphere stroke. Again defer to neurology. 06/23/16 she's had an old right parietal stroke. Apparently a new right thalamic stroke. Her pinpoint pupils concerning for possible pontine involvement. 06/24/16 status post stroke. Defer to neurology. 06/25/16 recent right thalamic stroke. Old right parietal hemispheric stroke. She is moving all 4 extremities without difficulty this morning. Current Visit: No Qualifiers: CVA mechanism: unspecified Qualified Code(s): I63.9 - Cerebral infarction, unspecified (5) Acute respiratory failure Status: Acute Assessment and plan: Patient is on the ventilator and intubated due to decreased level of consciousness. She is on empiric antibiotics for possible aspiration. We will adjust ventilator. PO2 is in the 300s on 100% oxygen. She has a mildly acidotic pH. Will increase minute ventilation and reduce FiO2. 06/23/16 presently we are hyperventilating a little because of the stroke. When able to hold sedation and do CPAP with mechanics, we will do that and hopefully can wean. Depends on her mental status. 06/24/16 patient did not do well with mechanics. Not able to get extubated. Mental status also preventing extubation at this point. 06/25/16 ABGs look good. We will recheck mechanics and blood gases this morning on CPAP. Hopefully we can get her extubated. Mental status is improved. Current Visit: Yes
--- NOTE | 2016-06-25 07:40 | XRay Report ---
XR chest 1V portable Indication: Pneumonia Comparison: 24 June 2016 Findings: The heart and mediastinum are stable in size and configuration. The lines and tubes are unchanged in position. The pulmonary vascularity is prominent but similar to previous exam.. No lung infiltrates, effusions, pneumothorax or other abnormality is demonstrated. Impression: No significant change. PROCEDURE INTERPRETED AT [facility] DEPARTMENT OF RADIOLOGY Final Report Signed by: Dr. Saul Brannon
[2016-06-25 08:22] LABS: Calcium 8.8 MG/DL (8.5-10.1); Magnesium 1.8 MG/DL (1.8-2.4); Osmolality,Calculated 281.3 MOS/KG (273-304); Potassium 3.9 MMOL/L (3.5-5.1)
--- NOTE | 2016-06-25 09:20 | Hospitalist Progress Note ---
Assessment and Plan (1) Altered mental status Status: Resolved Assessment and plan: Given the history I am concerned she has had another significant stroke, especially with her acute presentation and her elevated blood pressure. Also must consider postictal after witnessed seizure. I am admitting to ICU, start IV Keppra, Neurology consult and repeat CT in the am. Her BP is elevated but I don't want to lower to quickly in light of concerns for acute ischemic stroke but could her HTN being uncontrolled caused her presentation. 06/22/16: it appears she did become more alert on yesterday evening and her sedation was increased. Once weaning from vent began will hopefully be able to exam her from a neurology standpoint. 06/23/16: CT done yesterday was inconclusive for an acute infarct. She appears to follow simple commands when sedation is turned around her symptoms could related to postictal state if she did have witnessed grand mal seizure. We'll continue with weaning from ventilator so we can assess her neurological functioning 06/25/16: She likely was postictal presentation now the sedation has been weaned she appears to be more alert. Current Visit: Yes Qualifiers: Altered mental status type: unspecified Qualified Code(s): R41.82 - Altered mental status, unspecified (2) Seizure Status: Acute Assessment and plan: She did present with witness activity as stated start IV Keppra, Neuro consult and PRN meds 06/22/16: Keppra frequency increased and no more seizures since admissions appreciate Neurology recommendations. 06/23/16: Witnessed seizures prior to admissions. She has not had any more seizures since being admitted. continue with Keppra Current Visit: Yes (3) Hypertensive urgency, malignant Status: Acute Assessment and plan: This could have cause symptoms but also must consider new CVA and don't want to lower BP to rapidly. Current Visit: Yes (4) IDDM (insulin dependent diabetes mellitus) Status: Acute Assessment and plan: will want to keep control in light of her presentation as studies have shown CBG 141-180 have better outcomes in case of acute infarct. Sliding scale insulin Current Visit: Yes Hospitalist: Subjective Interval history: Station resolved patient is more alert today hopefully we can get her extubated. She presented were also mental status appears she was post ictal after a witnessed seizure. CT of the head was inconclusive for possible recurrence of an acute stroke. Exam - Constitutional Vitals: Period Temp Pulse Resp BP Sys/Marin Pulse Ox Last 24 Hr 97.3 F-98.9 F 65-83 10-22 101-152/54-81 100-100 General appearance: no acute distress - Head Head exam: Present: normocephalic, atraumatic - Eye Eye exam: Present: EOMI Pupils: Present: KAYLEN - Respiratory Respiratory exam: Present: rhonchi - Cardiovascular Cardiovascular exam: Present: regular rate and rhythm - GI/Abdominal GI/Abdominal exam: Present: normal bowel sounds, soft - Extremities Exam Extremities exam: Present: full ROM - Neurological Exam Neurological exam: Present: alert, oriented X3 - Psychiatric Psychiatric exam: Present: normal affect, normal mood - Skin Skin exam: Present: warm, intact Results - Labs CBC & BMP: 06/24/16 03:23 06/25/16 07:42 Quality Measures - Stroke Onset of Symptoms Date: 06/21/16
[2016-06-25] MEDS: PANTOPRAZOLE 40 MG VIAL IV SCH ×2 (09:45→20:30)
[2016-06-25 09:47] LABS: ABG Base Excess -5.8 MMOL/L (-2.5-2.5); ABG HCO3 19.7 MMOL/L (20-26); ABG Oxygen Saturation 96.5 % (95-100); ABG PCO2 43.8 MM HG (35-48); ABG PH 7.285 (7.35-7.45); ABG PO2 97.5 MM HG (80-95); ABG TCO2 18.9 MMOL/L (23-27)
[2016-06-25] MEDS: CIPROFLOXACIN INJ 400 MG in PREMIX 1 EACH IV SCH ×2 (10:27→22:18)
[2016-06-25] MEDS ORDERED: SODIUM BICARBONATE 50 MEQ/50 ML VIAL IV ONE (10:38)
[2016-06-25 12:21] LABS: ABG Base Excess -3.4 MMOL/L (-2.5-2.5); ABG HCO3 21.5 MMOL/L (20-26); ABG Oxygen Saturation 95.7 % (95-100); ABG TCO2 20.5 MMOL/L (23-27)
--- NOTE | 2016-06-25 14:43 | Neurology Progress Note ---
Neurology - PN : Subjective Interval history: Patient seems to be doing okay. No new problems reported. No more seizures reported. More alert and awake. Speech is fluent. Exam (Progress Note) - Constitutional Vitals: Period Temp Pulse Resp BP Sys/Marin Pulse Ox Last 24 Hr 97.4 F-98.9 F 62-93 10-22 101-152/54-81 97-100 Exam: GENERAL: Patient is in no acute distress. NECK: Neck is supple. There is no JVD. No carotid bruits present. No thyroid masses. CVS: First and second heart sounds are normal. There is no S3 present. Regular rate and rhythm. RESPIRATORY: Lungs are clear to auscultation without any rales or rhonchi. ABDOMEN: Soft and non-tender. Bowel sounds are present. There is no hepatosplenomegaly. EXT: There is no palpable edema. Peripheral pulses are present. Skin: No rashes Central Nervous system: General: Alert, awake Speech: Fluent Comprehension: Intact and normal Facial expressions: Normal Cranial Nerves: 2 through 12 are intact and normal Motor: Bulk and Tone is normal. Strength symmetrical Sensory: Grossly intact for all the modalities of PP, LT and temp sense Reflexes: 1+ and symmetrical Cerebellar function:Slow finger to nose and heel to lynn testing. Gait: Not tested Results - Labs CBC & BMP: 06/24/16 03:23 06/25/16 07:42 Assessment and Plan (1) Seizure Status: Acute Assessment and plan: Change Keppra to 750 mg by mouth twice a day No further new recommendations. Current Visit: Yes Quality Measures - Stroke Onset of Symptoms Date: 06/21/16
[2016-06-25] MEDS ORDERED: ACETAMINOPHEN 325 MG TABLET ONE (15:47)
[2016-06-25] MEDS ORDERED: ACETAMINOPHEN 325 MG TABLET PO PRN (16:09)
[2016-06-25] MEDS: ENOXAPARIN 40 MG/0.4 ML SYRINGE SUBCUT SCH (17:00)
[2016-06-25] MEDS: CIPROFLOXACIN INJ 200 MG in PREMIX 1 EACH IV SCH (19:45)
[2016-06-25] MEDS: levETIRAcetam 500 MG TABLET PO SCH (20:29)
[2016-06-26] MEDS: CLINDAMYCIN INJ 900 MG in PREMIX 1 EACH IV SCH (00:32)
[2016-06-26 05:42] LABS: Calcium 8.6 MG/DL (8.5-10.1); Magnesium 1.8 MG/DL (1.8-2.4); Osmolality,Calculated 282.1 MOS/KG (273-304); Potassium 4.5 MMOL/L (3.5-5.1)
[2016-06-26] MEDS: INSULIN LISPRO 100 UNIT/ML SUBCUT SCH (06:20)
--- NOTE | 2016-06-26 07:10 | XRay Report ---
XR chest 1V portable Indication: Pneumonia Comparison: 25 June 2016 Findings: The heart and mediastinum are normal in size and configuration. Endotracheal tube and NG tube have been removed. The pulmonary vascularity is normal in caliber. No lung infiltrates, effusions, pneumothorax or other abnormality is demonstrated. Impression: Removal of NG tube and endotracheal tubes. No other significant change. PROCEDURE INTERPRETED AT [facility] DEPARTMENT OF RADIOLOGY Final Report Signed by: Dr. Saul Brannon
--- NOTE | 2016-06-26 07:38 | Pulmonology Progress Note ---
Pulmonary - PN: Subj Interval history: This 71-year-old lady came in following the seizure and decreased level of consciousness. She was found to have a new thalamic stroke on CT. She's had a previous right parietal stroke. She has pinpoint pupils and I suspect she may have had some pontine involvement as well but would defer to neurology there. ABGs are much improved. We will see if we can get her extubated. Stable from a pulmonary standpoint. Mental status will tell us whether we can get her weaned. If she is alert responsive and cooperative during CPAP trials and her mechanics are acceptable, then we will proceed. 06/24/16 patient is not waking up. Still requiring mechanical ventilatory support. Mechanics were not adequate for extubation yesterday. Mental status still not adequate for extubation. 06/25/2016 patient is alert and nods to questions. Admissions Assistant with both hands. Little's both feet. Versed has been held since early this morning. We should be able to get her extubated today. 06/26/16 patient was extubated and has done well since then. Chest x-ray is clear. No fever. We'll stop antibiotics. Change Protonix to by mouth. She still has a mild metabolic acidosis with hyperchloremia. Probably renal tubular dysfunction. Exam (Progress Note) - Constitutional Vitals: Period Temp Pulse Resp BP Sys/Marin Pulse Ox Last 24 Hr 97.3 F-98.0 F 66-93 13-21 112-156/63-82 93-100 Exam: Patient is alert and responsive. Vital signs stable and normal. Systolic blood pressure in the 130s. Pupils are small. Face symmetrical. O2 sat 93% on room air. Neck supple no bruits. Chest is clear equal breath sounds. Heart normal rate rhythm no murmurs. Abdomen soft nontender no masses. Extremities no clubbing cyanosis edema. Calves nontender Results - Labs CBC & BMP: 06/24/16 03:23 06/26/16 04:09 Lab Results: I have reviewed the past 24 hour labs - Diagnostic Findings Procedure: Chest x-ray: image reviewed by me (chest x-ray is clear) Assessment and Plan (1) Altered mental status Status: Acute Assessment and plan: Altered mental status due to seizure and apparent new thalamic stroke. Defer to neurology. Continue with airway control and mechanical ventilation until neurologic status is improved. 06/23/2016 patient had a new thalamic stroke superimposed on an old right parietal stroke. She's had a seizure. We'll need to evaluate mental status before deciding about extubation. Presently on a Versed infusion which will need to be held. 06/24/16. Recent seizure. Unable to withdraw Versed and wean at this point. 06/25/16 patient had a seizure and evidence of a thalamic stroke. This morning with sedation held she is nodding to questions gripping on command and wiggling toes on command. Mental status much improved. Hopefully we can get her extubated shortly. She has had no further seizures. 06/26/2016 mental status much improved. No further seizures. Needs further evaluation by physical/occupational/speech therapy. Current Visit: Yes (2) IDDM (insulin dependent diabetes mellitus) Status: Acute Assessment and plan: Sliding scale insulin. 06/23/16 blood sugars well controlled on sliding scale. 06/24/16 continuing sliding scale. 06/25/16 glucoses well controlled. 06/26/16 glucoses well controlled. She has mild renal insufficiency and mild hyperchloremic metabolic acidosis. Current Visit: Yes (3) Seizure Status: Acute Assessment and plan: Patient had witnessed grand mal seizure and is on anti-seizure medications. Defer to neurology. 06/23/16 no further seizures. She is on medications for that and neurology is following. 06/24/16 continuing seizure medications. 06/25/16 neurology following. Patient on seizure medications. No further seizures. 06/26/[address] Titus following. Current Visit: Yes (4) CVA (cerebral vascular accident) Status: Acute Assessment and plan: Brain CT this morning indicates a right thalamic stroke superimposed on previous right parietal hemisphere stroke. Again defer to neurology. 06/23/16 she's had an old right parietal stroke. Apparently a new right thalamic stroke. Her pinpoint pupils concerning for possible pontine involvement. 06/24/16 status post stroke. Defer to neurology. 06/25/16 recent right thalamic stroke. Old right parietal hemispheric stroke. She is moving all 4 extremities without difficulty this morning. 06/26/16 defer to neurology on the next step here. Current Visit: No Qualifiers: CVA mechanism: unspecified Qualified Code(s): I63.9 - Cerebral infarction, unspecified (5) Acute respiratory failure Status: Resolved Assessment and plan: Patient is on the ventilator and intubated due to decreased level of consciousness. She is on empiric antibiotics for possible aspiration. We will adjust ventilator. PO2 is in the 300s on 100% oxygen. She has a mildly acidotic pH. Will increase minute ventilation and reduce FiO2. 06/23/16 presently we are hyperventilating a little because of the stroke. When able to hold sedation and do CPAP with mechanics, we will do that and hopefully can wean. Depends on her mental status. 06/24/16 patient did not do well with mechanics. Not able to get extubated. Mental status also preventing extubation at this point. 06/25/16 ABGs look good. We will recheck mechanics and blood gases this morning on CPAP. Hopefully we can get her extubated. Mental status is improved. 06/26/16 respiratory failure has resolved. Current Visit: Yes
[2016-06-26] MEDS: levETIRAcetam 500 MG TABLET PO SCH (08:27)
[2016-06-26] MEDS ORDERED: PANTOPRAZOLE 40 MG TABLET PO SCH (09:00)
--- NOTE | 2016-06-26 09:52 | Discharge Summary ---
Hospital Course - Hospital Course Hospital Course: Jayesh is a 71-year-old female with a history of CVA last year who presented to the ER after witnessed seizure activity. She was postitcal in the emergency department therefore she was intubated to protect her airway. She was admitted to the intensive care unit where she was started on IV Keppra. We did obtain a neurology consultation who agreed with current assessment and plan. She remained intubated over the past few days as she had poor mechanics. Initially it was thought that she might of had a repeat stroke and repeat CT was inconclusive for an acute infarct. After her sedation was weaned patient did follow simple commands and after a few days being intubated she was extubated. Since she has been following commands there appears to be no focal neurological deficits and she has not had any more seizures since admissions. Clinically she has done well. Physical therapy has been working with her and feel like she is progressing well also speech therapy evaluate patient. She is now stable to go home her Keppra is being increased to 750 mg twice a day. We will set up home health so she can receive outpatient physical therapy and speech therapy. She will follow-up with her primary care physician in next 5-7 days. - Time spent with patient Time with patient DS: Greater than 30 minutes Diagnosis - Discharge Diagnosis (1) Altered mental status Status: Resolved (2) Seizure Status: Acute (3) Hypertensive urgency, malignant Status: Acute (4) IDDM (insulin dependent diabetes mellitus) Status: Acute Discharge Plan - Discharge Data Disposition: Home Health Service Discharge Diet: diabetic diet, low salt diet Activity: as per physical therapy Hygiene: no restrictions, other Driving: not for (about 6 months) - Discharge Medications New levETIRAcetam TAB [Keppra Tab] 750 mg PO BID #60 tablet Continue Atenolol/Chlorthalidone [Atenolol-Chlorthalidone 50-25] 1 tablet PO DAILY buPROPion SR [Wellbutrin Sr] 150 mg PO DAILY Glimepiride 2 mg PO DAILY Isosorbide Mononitrate [Isosorbide Mononitrate ER] 30 mg PO DAILY Metformin HCl 1,000 mg PO BID Nitroglycerin Sl Tab [Nitrostat] 0.4 mg SL Q5M PRN PRN Reason: Chest Pain Pregabalin [Lyrica] 75 mg PO DAILY Ranolazine [Ranexa] 500 mg PO BID Valsartan 80 mg PO DAILY Aspirin Tab 325 mg PO DAILY #30 tablet Atorvastatin [Lipitor] 20 mg PO DAILY amLODIPine [Norvasc] 10 mg PO DAILY - Follow Up or Referral - Forms/Instructions Additional Discharge Instructions: follow up with PCP in 5-7 days Exam - Constitutional Vitals: Period Temp Pulse Resp BP Sys/Marin Pulse Ox Last 24 Hr 97.3 F-98.0 F 66-93 13-20 112-156/63-87 93-100 General appearance: no acute distress - Head Head exam: Present: normocephalic, atraumatic - Eye Eye exam: Present: EOMI Pupils: Present: KAYLEN - ENT ENT exam: Present: normal exam - Neck Neck exam: Present: normal inspection - Respiratory Respiratory exam: Present: clear to auscultation bilaterally - Cardiovascular Cardiovascular exam: Present: regular rate and rhythm - GI/Abdominal GI/Abdominal exam: Present: normal bowel sounds, soft - Extremities Exam Extremities exam: Present: full ROM - Neurological Exam Neurological exam: Present: alert, oriented X3, CN II-XII intact - Psychiatric Psychiatric exam: Present: normal affect, normal mood - Skin Skin exam: Present: warm, intact Discharge Results Procedures and tests throughout hospitalization: Pending Orders 06/25/16 04:15 MRSA Surveillence, Inf Control Routine Labs on day of discharge: Labs from last 24 hours 06/26/16 06/26/16 06/25/16 06:01 04:09 23:06 ABG pH ABG pCO2 ABG pO2 ABG HCO3 ABG Total CO2 ABG O2 Saturation ABG Base Excess Sodium 142 Potassium 4.5 Chloride 108 H Carbon Dioxide 19 L Anion Gap 19.5 H BUN 14 Creatinine 1.50 H GFR Calculation 45 BUN/Creatinine Ratio 9.00 Glucose 79 POC Glucose 124 H 104 Calculated Osmolality 282.1 Calcium 8.6 Magnesium 1.8 06/25/16 06/25/16 06/25/16 18:05 12:15 11:42 ABG pH 7.320 L ABG pCO2 44.0 ABG pO2 89.0 ABG HCO3 21.5 ABG Total CO2 20.5 L ABG O2 Saturation 95.7 ABG Base Excess -3.4 L Sodium Potassium Chloride Carbon Dioxide Anion Gap BUN Creatinine GFR Calculation BUN/Creatinine Ratio Glucose POC Glucose 120 H 169 H Calculated Osmolality Calcium Magnesium DS: Provider Date of admission: 06/21/16 15:08 Primary care physician: . No PCP Attending physician on admission: Angela Watts MD Consults: 06/21/16 15:50 Consult to Case Mgmt/Social Srvs [CONS] Routine Reason for Case Mgmt/Social Srvs: Discharge Planning Consult to Occupational Therapy [CONS] Routine Reason for Occupational Therapy: Evaluate and Treat Consult Comment: Stroke Consult to Physical Therapy [CONS] Routine Reason for Physical Therapy: Evaluate and Treat Consult Comment: stroke Consult to Speech Therapy [CONS] Routine Reason for Speech Therapy: CVA Consult Comment: with/without possible aspiration 06/21/16 17:09 Consult to Pharmacy [CONS] Routine Reason for Pharmacy Consult: Adjust Meds Renal Funct 06/24/16 14:47 Consult to Dietitian [CONS] Routine Reason for Dietitian: TF-Initiate/Manage 06/26/16 08:19 Consult to Case Mgmt/Social Srvs [CONS] Routine Reason for Case Mgmt/Social Srvs: Home Health Consult Comment: Please set up for HOME HEALTH, going home today Discharging clinician: Angela Watts MD Expected date of discharge: 06/26/16
[2016-06-26] MEDS ORDERED: INFLUENZA VIRUS VACCINE 0.5 ML SYRINGE IM ONE (11:19)
[2016-06-26 12:13] VITALS: BP 113/84
--- NOTE | 2016-06-28 13:21 | Physician Query Form ---
CLICK EDIT DOCUMENT TO SELECT QUERY ANSWER --> OK --> SIGN Shruthi Cronin RN Clinical Manager Diversity W) [phone] (f) [phone] [email or web address] PROVIDERS: Make your selection(s) from the choices in EACH section by typing an "x" and enter comments in the comment section. Please use your independent medical judgment in providing your response. This request does not imply that any particular answer is desired or expected. CLINICAL INDICATORS: (Providers should not edit this section) Based on documentation of "Acute CVA" "The stroke is a possibility" "CT brain indicates a right thalamic stroke superimposed on right parietal hemisphere stroke" "Pinpoint pupils" "Since she is following commands there appears to be no focal neurological deficits." Based on the above, could you clarify the appropriate diagnosis, if significant , that supports the above abnormalities and additional evaluation, monitoring, and/or treatment rendered: ( ) Patient had an acute CVA ( x) Patient did not have an acute CVA ( ) Other, please specify: ( ) Clinically unable to determine COMMENTS: Use of terms such as suspected, likely, or probable (associated with a specific diagnosis that is being evaluated, monitored, or treated as if it exists) are acceptable and can be restated in the discharge summary if not ruled out. MTDD
--- NOTE | 2016-06-28 13:23 | Physician Query Form ---
CLICK EDIT DOCUMENT TO SELECT QUERY ANSWER --> OK --> SIGN Shruthi Cronin RN Clinical Pressure Testing Technician W) [phone] (f) [phone] [email or web address] PROVIDERS: Make your selection(s) from the choices in EACH section by typing an "x" and enter comments in the comment section. Please use your independent medical judgment in providing your response. This request does not imply that any particular answer is desired or expected. CLINICAL INDICATORS: (Providers should not edit this section) The below diagnosis was documented in the record, but is not consistently noted in subsequent documentation. Based on documentation of "She is on antibiotics for possible aspiration pneumonia" Treated with IV Cleocin. Diagnosis: Aspiration Pneumonia Please clarify the following: ( ) The above diagnosis was monitored, evaluated, and/or treated and is a confirmed diagnosis (x ) The above diagnosis was ruled out ( ) The above diagnosis is still a likely, suspected, probable diagnosis ( ) Other, please specify: ( ) Clinically unable to determine COMMENTS: Use of terms such as suspected, likely, or probable (associated with a specific diagnosis that is being evaluated, monitored, or treated as if it exists) are acceptable and can be restated in the discharge summary if not ruled out. [facility]
== END 2016-06-26 11:47 | disposition home health service (06) | DRG 100 ==
LOC: EDUNIT# → EDBD → N.ED 13:24 → N.EDINP 15:08 → N.CC 15:56
PROVIDERS: ADMIT Family Medicine; ATTEND Family Medicine

== ENCOUNTER 2017-01-10 09:30 | Inpatient (IN) ==
[2017-01-10] MEDS ORDERED: SODIUM CHLORIDE 0.9% 1,000 ML IV STA (09:49)
--- NOTE | 2017-01-10 10:04 | Emergency Department Note ---
Francine Culp Hilary, am scribing for, and in the presence of, Sreedhar Hensley MD 09: 50. Shellie Culp James D, MD, personally performed the services described in this documentation, ascribed by Edel Escamilla in my presence, and it is both accurate and complete . Arrival - Arrival Chief Complaint: Weakness Stated Complaint: neuro ED Nursing Triage Note: Brought in per EMS from home with c/o left leg weakness onset this am upon waking. Unable to stand on left leg. Reports was normal at 2130 last pm. Denies pain. Speech clear, answering all questions appropriately. Mode of Arrival: Stretcher Limitations: No Limitations Source: Patient, RN Notes Reviewed Time Seen by Provider: 01/10/17 09:44 - History of Present Illness HPI Narrative: Pt is a 71 y/o female brought to the ED via EMS for c/o left sided weakness which onset this morning. Pt reports feeling normal at 2130 last evening. Pt denies any pain at this time and states that her sugar levels have been "alright ". Pt has a PMHx of CAD, HTN, ME, TIA, CVA, Dyslipidemia, NIDDM and Gout. No other complaints or problems stated in the ED. Onset (ago): hour(s) Consistency: constant Severity: mild Severity scale (1-10): 1 Date of Last Menstrual Period: PM Allergies/Adverse Reactions: Allergies Allergy/AdvReac Type Severity Reaction Status Date / Time codeine Allergy Palpitation Verified 01/10/17 09:38 s Home Medications: Home Medications Medication Instructions Recorded Confirmed Type Atenolol/Chlorthalidone 1 tablet PO DAILY 11/08/15 06/21/16 History [Atenolol-Chlorthalidone 50-25] Glimepiride 2 mg PO DAILY 11/08/15 06/21/16 History Isosorbide Mononitrate [Isosorbide 30 mg PO DAILY 11/08/15 06/21/16 History Mononitrate ER] Metformin HCl 1,000 mg PO BID 11/08/15 06/21/16 History Nitroglycerin Sl Tab [Nitrostat] 0.4 mg SL Q5M PRN 11/08/15 06/21/16 History Pregabalin [Lyrica] 75 mg PO DAILY 11/08/15 06/21/16 History Ranolazine [Ranexa] 500 mg PO BID 11/08/15 06/21/16 History Valsartan 80 mg PO DAILY 11/08/15 06/21/16 History buPROPion SR [Wellbutrin Sr] 150 mg PO DAILY 11/08/15 06/21/16 History Aspirin Tab 325 mg PO DAILY #30 tablet 11/14/15 06/21/16 Rx Atorvastatin [Lipitor] 20 mg PO DAILY 06/21/16 06/21/16 History amLODIPine [Norvasc] 10 mg PO DAILY 06/21/16 06/21/16 History levETIRAcetam TAB [Keppra Tab] 750 mg PO BID #60 tablet 06/26/16 Rx Review of System - Review of System 12 point system: reviewed and no additional remarkable complaints except as stated - Review of System Constitutional: Present: weakness (left side). Absent: fever Neurological: Present: weakness (left side) Medical,Surgical,& Family Hx - Medical History Cardio: History of: CAD, Hypertension, ME Neurology: History of: Cerebrovascular Accident, TIA Endocrine: History of: Diabetes Mellitus (NIDDM), Dyslipidemia Rheumatology: History of;: Gout, Rheumatoid Arthritis - Surgical History Cardiac Surgeries: Sugical HX of: Cardiac Catheterization (with 2 or 3 stents ( patient is unsure)) Thoracic Surgeries: Surgical HX of;: Nephrectomy (left kidney removal (1986)) Reproductive Surgeries: Surgical HX of;: Hysterectomy - Family History Family History: Reports;: Family Diabetes (sisters), Family Heart Disease ( sister) - Social History Smoking Status: Smoker, status unknown Frequency of Alcohol Use: None Type of Drug Use: None Exam Physical Examination: GENERAL: This is a well-nourished, well-developed black female in no apparent distress. VITAL SIGNS: Temperature: 97.6 Pulse: 55 Respiratory: 20 Blood Pressure: 177 /104 O2 Sat: 100 HEENT: Head is normocephalic and atraumatic. Pupils are equally round and reactive to light. Extraocular movement are intact. Oropharynx is benign with moist mucous membranes. NECK: Neck is soft and supple without tenderness. There are no masses. There is no lymphadenopathy. LUNGS: Lungs are clear to auscultation bilaterally. Chest rises symmetrically. There is no chest wall tenderness. CV: Heart is regular rate and rhythm without murmurs, rubs, or gallops. ABDOMEN: Abdomen is soft, non-tender to palpation. There are no abnormal masses palpated. There is no organomegaly. Bowel sounds are present and active. SKIN: Skin is warm and dry. No rash. EXTREMITIES: Patient has full range of motion without tenderness. There is no pedal edema. NEUROLOGIC: Awake, alert, and oriented x4. Cranial nerves II through XII are grossly intact. There are no motorsensory deficits. PSYCHIATRIC: Normal affect. Normal mood. Vital Signs: Vital Signs Temperature 97.6 F 01/10/17 09:30 Pulse Rate 55 L 01/10/17 09:30 Respiratory Rate 20 01/10/17 09:30 Blood Pressure 177/104 01/10/17 09:30 O2 Sat by Pulse Oximetry 100 01/10/17 09:30 Results - Labs CBC & BMP: 01/10/17 10:52 01/10/17 10:52 Lab Results: I have reviewed the patients labs Labs: Laboratory Tests 01/10/17 10:52 WBC 6.6 RBC 4.69 Hgb 14.8 Hct 45.1 Plt Count 234 MPV 11.4 - EKG EKG results: interpreted by ERMD - Impressions EKG: Sinus bradycardia with rate of 54, nonspecific ST-T wave changes, normal axis. - Diagnostic Findings Procedure: Chest x-ray: image reviewed by me, report reviewed by me (1. Mild eventration right hemidiaphragm and pleural diaphragmatic reaction 2. Degenerative spondylosis change thoracic spine 3. No obvious overt congestive failure consolidating infiltrates with mild scarring in the lung mariscal bilaterally.), CT: report reviewed by me (CT HEAD: 1. No acute hemorrhage infarction or mass effect 2. Old infarction involving the right parietal love and old calcified infarct suspected inteh left cerebellum. 3. Diffuse small vessel ischemic changes present. ) Disposition Clinical Impression: Stroke, Essential hypertension, Diabetes mellitus Case discussed with: patient Disposition: Still a Patient Condition: Stable NIH Stroke Score - Stroke Score Initial Assessment Level of Consciousness: Alert Level of Consciousness Questions: Answers Both Correctly Level of Consciousness Commands: Obeys Both Correctly Best Gaze: Normal Visual Mariscal: Partial Hemianopia Facial Palsy: Normal Motor - Right Arm: No Drift Motor - Left Arm: Drift Motor - Right Leg: No Drift Motor - Left Leg: Drift Limb Ataxia: Absent Sensory (Pin Prick): Normal Best Language: Normal Dysarthria: Normal Extinction / Inattention (Neglect): No Neglect NIH Stroke Score: 3
--- NOTE | 2017-01-10 10:04 | EKG Report ---
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
--- NOTE | 2017-01-10 10:31 | XRay Report ---
Exam: XR chest 1V portable Date: 01/10/2017 9:49 AM Indication: Cardiomegaly Comparison: 06/26/2016 Technical: AP Findings: Lateral marginal osteophytes are present. There is some eventration right hemidiaphragm. The heart is at upper limits of normal. Mediastinum is otherwise demonstrated with a few small nodes. No obvious consolidating infiltrates or effusions with mild interstitial thickening the perihilar regions Impression: 1. Mild eventration right hemidiaphragm and pleural diaphragmatic reaction 2. Degenerative spondylosis change thoracic spine 3. No obvious overt congestive failure consolidating infiltrates with mild scarring in the lung rhodes bilaterally PROCEDURE INTERPRETED AT [facility] DEPARTMENT OF RADIOLOGY Final Report Signed by: Dr. Wesley Kaufman
--- NOTE | 2017-01-10 10:38 | CT Report ---
Exam: CT scan of brain without contrast Date: 01/10/2017 Indication: Left lower extremity weakness Comparison: 06/22/2016 Patient's classification: Emergency department Technical: Images were obtained from the skull base to the vertex without the use of intravenous contrast. Dose reduction was performed with decreasing kv and mA and automated exposure Total DLP: 942.4 mGy*cm Findings: Brainstem is intact. There is an area of calcification in the left cerebellum that measures approximately 1 cm. The ventricles are enlarged. Encephalomalacia changes present in the right parietal lobe and subcortical junction extending towards the vertex. The exam reveals small vessel ischemic changes otherwise noted. Paranasal sinuses globes and sella are intact. The mastoids are unremarkable. Small lucent areas present in the left calvarium unchanged from prior study along the left posterior parietal bone Impression: 1. No acute hemorrhage infarction or mass effect 2. Old infarction involving the right parietal lobe and old calcified infarct suspected in the left cerebellum 3. Diffuse small vessel ischemic changes present. PROCEDURE INTERPRETED AT [facility] DEPARTMENT OF RADIOLOGY Final Report Signed by: Dr. Wesley Kaufman
[2017-01-10 11:05] LABS: Basophils # 0.1 10*3/uL (0.0-0.2); Basophils % 0.8 % (0.0-0.8); Eosinophils # 0.4 10*3/uL (0.0-0.87); Eosinophils % 5.6 % (0.00-10.9); Hematocrit 45.1 VOL% (35.7-47.0); Hemoglobin 14.8 GM/DL (12.0-16.0); Immature Granulocytes % 0.3 %; Immature Granulocytes Absolute 0.02 #; Lymphocytes # 1.7 10*3/uL (1.4-4.0); Lymphocytes % 25.8 % (21.3-54.2); Mean Corpuscular HGB Conc 32.8 GM/DL (32-36); Mean Corpuscular Hemoglobin 32 PG (27-34); Mean Corpuscular Volume 96.2 FL (87-102); Mean Platelet Volume 11.4 FL (9.6-12.0); Monocytes # 0.5 10*3/uL (0.11-0.8); Neutrophils % 60.5 % (38.7-73.9); Platelet Count 234 T/CUMM (130-400); Red Blood Count 4.69 MC/CUMM (3.8-5.5); Red Cell Distribution Width 14.3 % (9.3-17.3); White Blood Count 6.6 T/CUMM (4-12)
[2017-01-10 11:24] LABS: Apearance,Urine CLEAR (Clear); Bacteria,Urine Occasional /HPF (Few); Bilirubin,Urine Negative (Negative); Blood, Urine Small mg/dL (Negative); Glucose,Urine (UA) Negative (Negative); Ketones,Urine Negative (Negative); Mucus,Urine Occasional /LPF (Occasional); Nitrite,Urine Negative (Negative); Protein,Urine 100 MG/DL; RBC,Urine <1 /HPF (0-4); Squamous Epithelial Cell,Urine Occasional /HPF (0-10); Urine Color Yellow (Yellow); Urine Specific Gravity 1.012 (1.001-1.035); Urine Urobilinogen < 2.0 EU/DL (0.2-1.0)
[2017-01-10 11:29] LABS: PT Patient Result 10.5 SECS; Partial Thromboplastin Time 28.7 SECS (0-40)
[2017-01-10 11:34] LABS: Alanine Aminotransferase 16 U/L (13-56); Albumin 3.7 G/DL (3.4-5.0); Alkaline Phosphatase 77 U/L (45-117); Aspartate Amino Transferase 15 U/L (0-37); Bilirubin,Total < 0.39 MG/DL (0.2-1.0); Blood Urea Nitrogen 20 MG/DL (7-18); Calcium 9.6 MG/DL (8.5-10.1); Glucose 120 MG/DL (74-106); Osmolality,Calculated 280.5 MOS/KG (273-304); Potassium 4.3 MMOL/L (3.5-5.1); Sodium 139 MMOL/L (136-145); Troponin I Only < 0.015 NG/ML (0.00-0.045)
[2017-01-10 11:47] LABS: Barbiturates Screen,Urine Negative (Negative); Benzodiazepines Screen,Urine Negative (Negative); Cannabinoid Screen,Urine Negative (Negative); Opiate Screen,Urine Negative (Negative); Phencyclidine Screen,Urine Negative (Negative)
[2017-01-10] MEDS ORDERED: DEXTROSE 50% 25 GM/50 ML VIAL IV PRN (12:53)
[2017-01-10] MEDS ORDERED: GLUCAGON 1 MG VIAL IM PRN ×2 (12:53)
[2017-01-10] MEDS ORDERED: DEXTROSE 50% 25 GM/50 ML SYRINGE IV PRN (12:53)
[2017-01-10] MEDS ORDERED: NITROGLYCERIN SL 0.4 MG TABLET SL PRN (12:54)
[2017-01-10 13:16] LABS: Cholesterol 212 MG/DL (50-200); HDL Cholesterol 43 MG/DL (40-60); Risk Ratio 4.93; Triglycerides 186 MG/DL (2-150); Troponin I Only < 0.015 NG/ML (0.00-0.045); VLDL CHOLESTEROL 37.2 MG/DL
--- NOTE | 2017-01-10 13:17 | Hospitalist History & Physical ---
<Sherice Connorda - Last Filed: 01/10/17 13:02> Assessment and Plan (1) Diabetes mellitus Status: Acute Assessment and plan: Blood glucose is noted at 120 at the time of ED presentation. We will obtain hemoglobin A1c and start Accu-Cheks with sliding scale coverage. The patient is generally on 2 oral hyperglycemic agents. We will place the agents on hold at this time. Current Visit: Yes (2) Essential hypertension Status: Acute Assessment and plan: The patient was noted to be hypertensive at the time of ED presentation. Patient's blood pressure was noted at 177/104. We will allow some permissive hypertension at this time We will resume antihypertensive agents in a.m. Current Visit: Yes (3) Stroke Status: Acute Assessment and plan: The patient has an extensive medical history significant for transient ischemic attack and cerebrovascular accident. CT head at the time of ED presentation was essentially unremarkable for any acute intracranial processes. We will conduct a full CVA workup. We will obtain carotid Dopplers, echocardiogram, and schedule MRI in a.m. We will consult neurology for further direction. Current Visit: Yes (4) Seizure Status: Acute Assessment and plan: Patient has a previous diagnosis of seizure disorder. Upon review of the medical record, the patient has required multiple hospitalizations in the past due to seizure activity. We will resume Keppra per home dose. We will order a stat Keppra level. We will monitor very closely during the clinical encounter. A neurology consultation has been requested. Current Visit: No (5) Nicotine addiction Status: Acute Assessment and plan: The patient is a current smoker. I discussed in great detail the merits of refraining from nicotine abuse. The patient verbalized that she has no desire to stop smoking at this time. Nicotine patch has been offered and will be ordered as needed. Current Visit: Yes Qualifiers: Nicotine product type: cigarettes History of Present Illness Chief complaint: weakness/AMS History of present illness: This is a chronically ill 71-year-old female that presented to the ED at [facility] this morning for the evaluation of altered mental status and weakness. The patient has a medical history significant for coronary artery disease, hypertension, myocardial infarction, transient ischemic attack, cerebrovascular accident, dyslipidemia, [id number] diabetes mellitus, gouty arthritis, nicotine addiction, seizure disorder, and rheumatoid arthritis. Patient surgical history significant for cardiac catheterization with stent placement, left nephrectomy, and hysterectomy. At the time of ED presentation, the patient was altered. Her family was present at bedside service historian. They reported the onset of symptoms this morning. They noticed that the patient was profoundly weak on her left side. They reported that the patient last normal time was around 930 on last night. They have been instructed in the past by the patient's home health nurse of signs and symptoms of neurological abnormalities. They noticed that the left- sided weakness that the patient was experiencing was unusual prompting them to summons EMS for further assistance. The patient was subsequently transported to [facility] for further evaluation. The patient was assessed at the time of ED presentation. The patient was noted to be grossly hypertensive with a blood pressure of 177/105 and mildly bradycardic with a heart rate noted at 55. Labs were obtained which were significant for chloride of 108, BUN 20, creatinine 1.80, and globulin 4.3. Urinalysis was remarkable for urine urobilinogen greater than 2.0. Toxicology was essentially unremarkable and serum alcohol level was less than 15. Chest x- ray was significant for mild eventration right hemidiaphragm and pleural diaphragmatic reaction, degenerative spondylosis change thoracic spine, and no obvious overt congestive failure consolidating infiltrates with mild scarring in the lung rhodes bilaterally. CT head reported no acute hemorrhage, infarction, or mass-effect however, old infarction involving the right parietal lobe and old calcified infarct suspected in the left cerebellum and diffuse small vessel ischemic changes were present. After brief discussion with both Dr. Hensley and Dr. Muhammad, the patient will be admitted to the hospitalist service for continuation of care. Due to the severity of the patient's comorbidities and presenting signs and symptoms, a neurology consultation has been requested. Home medications have been reviewed and reconciled CODE STATUS discussed; patient is a FULL CODE. Home Medications Medication Instructions Recorded Confirmed Type Atenolol/Chlorthalidone 1 tablet PO QAM 11/08/15 01/10/17 History [Atenolol-Chlorthalidone 50-25] Glimepiride 2 mg PO DAILY W/BREAKFAST 11/08/15 01/10/17 History Isosorbide Mononitrate [Isosorbide 30 mg PO QAM 11/08/15 01/10/17 History Mononitrate ER] Metformin HCl 1,000 mg PO BID 11/08/15 01/10/17 History Nitroglycerin Sl Tab [Nitrostat] 0.4 mg SL Q5M PRN 11/08/15 01/10/17 History Pregabalin [Lyrica] 75 mg PO QAM 11/08/15 01/10/17 History Ranolazine [Ranexa] 500 mg PO BID 11/08/15 01/10/17 History Valsartan 80 mg PO QAM 11/08/15 01/10/17 History Aspirin Tab 325 mg PO DAILY #30 tablet 11/14/15 01/10/17 Rx Atorvastatin [Lipitor] 20 mg PO QAM 06/21/16 01/10/17 History amLODIPine [Norvasc] 10 mg PO QAM 06/21/16 01/10/17 History levETIRAcetam TAB [Keppra Tab] 750 mg PO BID #60 tablet 06/26/16 01/10/17 Rx Allergies Allergy/AdvReac Type Severity Reaction Status Date / Time codeine Allergy Palpitation Verified 01/10/17 09:38 s Medical,Surgical,& Family Hx - Medical History Cardio: History of: CAD, Hypertension, CT Neurology: History of: Cerebrovascular Accident, TIA Endocrine: History of: Diabetes Mellitus (NIDDM), Dyslipidemia Rheumatology: History of;: Gout, Rheumatoid Arthritis - Surgical History Cardiac Surgeries: Sugical HX of: Cardiac Catheterization (with 2 or 3 stents ( patient is unsure)) Thoracic Surgeries: Surgical HX of;: Nephrectomy (left kidney removal (1986)) Reproductive Surgeries: Surgical HX of;: Hysterectomy - Family History Family History: Reports;: Family Diabetes (sisters), Family Heart Disease ( sister) - Social History Smoking Status: Current every day smoker Have you smoked in the last 12 months: Yes Time spent discussing smoking cessation with patient: 3 to 10 minutes (8 minutes ) Frequency of Alcohol Use: None Type of Drug Use: None Marital Status: Single Lives With:: Children Functional capacity: uses cane/walker 12 point system: reviewed and no additional remarkable complaints except as stated Exam - Constitutional Vitals: Period Temp Pulse Resp BP Sys/Marin Pulse Ox Last 24 Hr 97.6 F-97.6 F 55-55 20-20 177-177/104-104 98-100 General appearance: normal weight, no acute distress - Head Head exam: Present: normal inspection, normocephalic, atraumatic - Eye Eye exam: Present: EOMI. Absent: conjunctival injection Pupils: Present: KAYLEN, normal accommodation - ENT ENT exam: Present: normal exam, normal external ear exam, normal oropharynx - Neck Neck exam: Present: normal inspection. Absent: lymphadenopathy, meningismus, tenderness, thyromegaly - Respiratory Respiratory exam: Present: clear to auscultation bilaterally. Absent: rales, rhonchi, stridor, wheezes - Cardiovascular Cardiovascular exam: Present: regular rate and rhythm. Absent: carotid bruit, diastolic murmur, gallop, JVD, rubs, systolic murmur - GI/Abdominal GI/Abdominal exam: Present: normal bowel sounds, soft - Extremities Exam Extremities exam: Present: normal inspection, normal capillary refill, full ROM (Trace right-sided weakness). Absent: edema - Back Exam Back exam: Present: normal inspection - Neurological Exam Neurological exam: Present: alert, oriented X3, altered, CN II-XII intact - Psychiatric Psychiatric exam: Present: normal affect, normal mood - Skin Skin exam: Present: normal color, warm, dry Results - Labs CBC & BMP: 01/10/17 10:52 01/10/17 10:52 Lab Results: I have reviewed the past 24 hour labs <Vishal Muhammad - Last Filed: 01/10/17 14:33> History of Present Illness History of present illness: Ms. Mcconnell is a 71 year old female who is being admitted to the hospital with altered mental status and left-sided weakness. Patient has a previous history of cerebrovascular disease with previous transient ischemic attacks and seizure disorder treated with Keppra. I have interviewed the patient, examined the patient, and reviewed all available laboratory and radiographic test results. I agree with the assessment and plans of Brooklynn Connor NP. The patient will be admitted to the hospital, restarted on her medications, and undergo a radiographic stroke evaluation. Neurology has been consulted. Exam - Constitutional Vitals: Period Temp Pulse Resp BP Sys/Marin Pulse Ox Last 24 Hr 97.6 F-97.6 F 49-63 16-20 150-197/75-106 98-100 Results - Labs CBC & BMP: 01/10/17 10:52 01/10/17 10:52
--- NOTE | 2017-01-10 13:53 | Ultrasound Report ---
Exam: US carotid duplex BI Date: 01/10/2017 12:49 PM Indication: Syncope Comparison 11/09/2015 Findings: Grayscale color flow analysis and spectral analysis imaging was performed with image stored and captured. Right Side Flow velocities centimeters per second Common carotid artery: 36.2 Proximal ICA: 41.8 Distal ICA: 44.4 External carotid artery: 43.5 Vertebral artery: 60.7 ICA/CCA ratio: 1.2 Measurements in millimeters Distal ICA: 51 Left SIde Flow velocities centimeters per second Common carotid artery: 44.4 Proximal ICA: 68.8 Distal ICA: 78.8 External carotid artery: 40.9 Vertebral artery: 42.7 ICA/CCA ratio: 1.8 Measurements in millimeters Distal ICA: 6 Mild spectral broadening present. Mild plaque present. Intimal hyperplasia is noted. Impression: 1. 16-49% stenosis bilaterally. Overall the findings appear similar to previous studies. Today studies were performed utilizing indirect NASCET criteria The ultrasound images were stored and captured PROCEDURE INTERPRETED AT [facility] DEPARTMENT OF RADIOLOGY Final Report Signed by: Dr. Wesley Kaufman
[2017-01-10] MEDS: SODIUM CHLORIDE 0.9% 1,000 ML IV SCH (15:16)
[2017-01-10] MEDS: INSULIN REGULAR 100 UNIT/ML SUBCUT SCH (17:03)
--- NOTE | 2017-01-10 20:04 | ECHO Report ---
Orin Mcconnell Exam Date: 01/10/2017 13:06 Referring Physician: Technologist: Diane Ho Age: 71 Ht (in): 65 Wt (lb): 170 Gender: F Exam Location: [facility] Echo Indications: weakness, Nicotine addition, HTN BP: 170 / 85 HR: 56 Rhythm: Sinus Technical Quality: Fair IMPRESSIONS Normal LV systolic function, ejection fraction 60%. Grade 1/4 diastolic dysfunction. Mild mitral and tricuspid regurgitation. Moderate aortic sclerosis without significant stenosis. MEASUREMENTS (Male / Female) Normal Values 2D ECHO LV Diastolic Diameter PLAX 4.4 cm 4.2 - 5.9 / 3.9 - 5.3 cm LV Systolic Diameter PLAX 3.3 cm IVS Diastolic Thickness 0.9 cm 0.6 - 1.0 / 0.6 - 0.9 cm LVPW Diastolic Thickness 0.9 cm 0.6 - 1.0 / 0.6 - 0.9 cm RV Internal Dim ED PLAX 2.7 cm Aortic Root Diameter 2.1 cm LA Systolic Diameter LX 2.9 cm 3.0 - 4.0 / 2.7 - 3.8 cm DOPPLER TR Peak Velocity 261.0 cm/s TR Peak Gradient 27.2 mmHg FINDINGS Left Ventricle Normal left ventricular cavity size. Left ventricular ejection fraction is estimated at 55-60 %. No regional wall motion abnormalities identified. There is grade 1/4 diastolic dysfunction consistent with impaired relaxation. Right Ventricle Normal right ventricular size. Right Atrium Normal right atrial size. Left Atrium Normal left atrial size. Mitral Valve Mildly thickened mitral valve with mild mitral regurgitation. Aortic Valve Mild - moderate aortic valve sclerosis without stenosis or regurgitation. Tricuspid Valve Morphologically normal tricuspid valve. Trace tricuspid valve regurgitation. Tricuspid regurgitation velocities suggest a PAP of 27.2 mmHg. Pulmonic Valve Pulmonic valve not well visualized. Pericardium No pericardial effusion. Aorta Normal size aortic root and proximal ascending aorta. Karuna Nunez MD (Electronically Signed) Final Date: 10 January 2017 20:03
[2017-01-10] MEDS: RANOLAZINE 500 MG TABLET PO SCH (21:03)
[2017-01-11] MEDS: INSULIN REGULAR 100 UNIT/ML SUBCUT SCH ×5 (01:20→21:04)
[2017-01-11 06:31] LABS: Basophils % 0.6 % (0.0-0.8); Eosinophils # 0.5 10*3/uL (0.0-0.87); Eosinophils % 7.6 % (0.00-10.9); Hematocrit 36.3 VOL% (35.7-47.0); Hemoglobin 12.2 GM/DL (12.0-16.0); Immature Granulocytes % 0.1 %; Immature Granulocytes Absolute 0.01 #; Lymphocytes # 2.9 10*3/uL (1.4-4.0); Lymphocytes % 41.3 % (21.3-54.2); Mean Corpuscular HGB Conc 33.6 GM/DL (32-36); Mean Corpuscular Hemoglobin 32 PG (27-34); Mean Platelet Volume 11.8 FL (9.6-12.0); Monocytes # 0.7 10*3/uL (0.11-0.8); Neutrophils # 2.8 10*3/uL (1.4-7.4); Neutrophils % 40.4 % (38.7-73.9); Platelet Count 214 T/CUMM (130-400); Red Blood Count 3.86 MC/CUMM (3.8-5.5)
[2017-01-11] MEDS ORDERED: LORazepam 2 MG/1 ML VIAL IV ONE (07:17)
[2017-01-11] MEDS: ATORVASTATIN 20 MG TABLET PO SCH (08:38)
[2017-01-11] MEDS: VALSARTAN 80 MG TABLET PO SCH (08:38)
[2017-01-11] MEDS: ASPIRIN 325 MG TABLET PO SCH (08:38)
[2017-01-11] MEDS: ISOSORBIDE MONONITRATE 30 MG TABLET PO SCH (08:38)
[2017-01-11] MEDS: ATENOLOL/CHLORTHALIDONE 50-25 MG TABLET PO SCH (08:39)
[2017-01-11] MEDS: RANOLAZINE 500 MG TABLET PO SCH ×2 (08:39→21:02)
[2017-01-11] MEDS: amLODIPine 10 MG TABLET PO SCH (08:39)
[2017-01-11] MEDS ORDERED: ACETAMINOPHEN 325 MG TABLET PO PRN (08:39)
[2017-01-11] MEDS: buPROPion SR 150 MG TABLET PO SCH (08:39)
[2017-01-11 08:53] LABS: Albumin 2.8 G/DL (3.4-5.0); Bilirubin,Total 0.7 MG/DL (0.2-1.0); Calcium 8.8 MG/DL (8.5-10.1); Magnesium 1.7 MG/DL (1.8-2.4); Phosphorous 2.7 MG/DL (2.5-4.9); Potassium 4.3 MMOL/L (3.5-5.1); Total Protein 6.4 G/DL (6.4-8.3)
--- NOTE | 2017-01-11 09:25 | Hospitalist Progress Note ---
<Britney Connor - Last Filed: 01/11/17 09:22> Assessment and Plan (1) Diabetes mellitus Status: Acute Assessment and plan: Blood glucose is noted at 120 at the time of ED presentation. We will obtain hemoglobin A1c and start Accu-Cheks with sliding scale coverage. The patient is generally on 2 oral hyperglycemic agents. We will place the agents on hold at this time. 01/11-hemoglobin A1c noted at 6.8. We will continue Accu-Cheks with sliding scale coverage as previously ordered. Current Visit: Yes (2) Essential hypertension Status: Acute Assessment and plan: The patient was noted to be hypertensive at the time of ED presentation. Patient's blood pressure was noted at 177/104. We will allow some permissive hypertension at this time We will resume antihypertensive agents in a.m. Current Visit: Yes (3) Stroke Status: Acute Assessment and plan: The patient has an extensive medical history significant for transient ischemic attack and cerebrovascular accident. CT head at the time of ED presentation was essentially unremarkable for any acute intracranial processes. We will conduct a full CVA workup. We will obtain carotid Dopplers, echocardiogram, and schedule MRI in a.m. We will consult neurology for further direction. 01/31-MRI scheduled this a.m.. Echocardiogram reported normal left ventricular systolic function ejection fraction at 60%, grade 1/4 diastolic dysfunction, mild mitral and tricuspid regurgitation, moderate aortic sclerosis without significant stenosis. Carotid Dopplers reported 16-49% stenosis bilaterally . Neurology consultation has been requested. We will await further recommendations. Current Visit: Yes (4) Seizure Status: Acute Assessment and plan: Patient has a previous diagnosis of seizure disorder. Upon review of the medical record, the patient has required multiple hospitalizations in the past due to seizure activity. We will resume Keppra per home dose. We will order a stat Keppra level. We will monitor very closely during the clinical encounter. A neurology consultation has been requested. 01/11-we will continue Keppra as previously ordered. Neurology consultations were requested. MRI scheduled this a.m. We will await for further recommendations. Current Visit: No (5) Nicotine addiction Status: Acute Assessment and plan: The patient is a current smoker. I discussed in great detail the merits of refraining from nicotine abuse. The patient verbalized that she has no desire to stop smoking at this time. Nicotine patch has been offered and will be ordered as needed. Current Visit: Yes Qualifiers: Nicotine product type: cigarettes Exam - Constitutional Vitals: Period Temp Pulse Resp BP Sys/Marin Pulse Ox Last 24 Hr 97.0 F-98.2 F 49-63 16-20 138-197/59-106 88-100 Results - Labs CBC & BMP: 01/11/17 05:48 01/11/17 05:48 Lab Results: I have reviewed the past 24 hour labs Quality Measures - Stroke Onset of Symptoms Date: 01/10/17 Onset of Symptoms Time: 07:45 <Vishal Muhammad - Last Filed: 01/11/17 09:46> Hospitalist: Subjective Interval history: I agree with the assessment and plans of Lailaihui ROSA. Patient appears stable today with no complaints. The CT scan of the head, echocardiogram, and carotid duplex Doppler examinations demonstrated no acute abnormalities. She is to undergo an MRI and MRA of the brain today. Neurology has been consulted. Exam - Constitutional Vitals: Period Temp Pulse Resp BP Sys/Marin Pulse Ox Last 24 Hr 97.0 F-98.2 F 49-63 16-20 138-197/59-106 88-100 Results - Labs CBC & BMP: 01/11/17 05:48 01/11/17 05:48
[2017-01-11] MEDS: SODIUM CHLORIDE 0.9% 1,000 ML IV SCH (11:31)
--- NOTE | 2017-01-11 11:51 | Neurology Consult Note ---
History of Present Illness History of present illness: Patient is not a very good historian. History basically obtained from the chart. 71 years old right-handed -[place] lady with past medical history significant for coronary artery disease, hypertension, myocardial infarction, transient ischemic attack, cerebrovascular accident, dyslipidemia, non-insulin- dependent diabetes mellitus, gouty arthritis, nicotine addiction, seizure disorder, and rheumatoid arthritis, coronary artery disease status post stenting in the past, left nephrectomy and hysterectomy admitted the hospital with change in mental status and left-sided weakness. Patient denied any weakness at this time however she is unable to tell me why she came to the hospital. According to the chart symptoms started yesterday morning. At the present time she is able to communicate and move all [address] of the head reveals no acute abnormalities. Patient is due to get MRI of the brain done. Patient had a history of seizures but denies seizures lately. He is on Keppra IV at the present time. Home Medications Medication Instructions Recorded Confirmed Type Atenolol/Chlorthalidone 1 tablet PO QAM 11/08/15 01/10/17 History [Atenolol-Chlorthalidone 50-25] Glimepiride 2 mg PO DAILY W/BREAKFAST 11/08/15 01/10/17 History Isosorbide Mononitrate [Isosorbide 30 mg PO QAM 11/08/15 01/10/17 History Mononitrate ER] Metformin HCl 1,000 mg PO BID 11/08/15 01/10/17 History Nitroglycerin Sl Tab [Nitrostat] 0.4 mg SL Q5M PRN 11/08/15 01/10/17 History Pregabalin [Lyrica] 75 mg PO QAM 11/08/15 01/10/17 History Ranolazine [Ranexa] 500 mg PO BID 11/08/15 01/10/17 History Valsartan 80 mg PO QAM 11/08/15 01/10/17 History Aspirin Tab 325 mg PO DAILY #30 tablet 11/14/15 01/10/17 Rx Atorvastatin [Lipitor] 20 mg PO QAM 06/21/16 01/10/17 History amLODIPine [Norvasc] 10 mg PO QAM 06/21/16 01/10/17 History levETIRAcetam TAB [Keppra Tab] 750 mg PO BID #60 tablet 06/26/16 01/10/17 Rx Allergies Allergy/AdvReac Type Severity Reaction Status Date / Time codeine Allergy Palpitation Verified 01/10/17 09:38 s ROS unobtainable: due to mental status Medical,Surgical,& Family Hx - Medical History Cardio: History of: CAD, Hypertension, [place] Neurology: History of: Cerebrovascular Accident, Seizures, TIA HEENT: History of: Eye Problem (partial blindness) Endocrine: History of: Diabetes Mellitus (NIDDM), Dyslipidemia Rheumatology: History of;: Gout, Rheumatoid Arthritis Renal: History of: Renal Problems (R kidney removed in november in 1986) Genitourinary: History of: Kidney Stones Gastrointestinal: History of: GERD Musculoskeletal: History of: Back/Neck Problems (Chronic low back pain) - Surgical History Cardiac Surgeries: Sugical HX of: Cardiac Catheterization (with 2 or 3 stents ( patient is unsure)) Thoracic Surgeries: Surgical HX of;: Nephrectomy (left kidney removal (1986)) Patient denies;: Organ Transplant Reproductive Surgeries: Surgical HX of;: Hysterectomy - Family History Family History: Reports;: Family Diabetes (sisters), Family Heart Disease ( sister) - Social History Smoking Status: Current every day smoker Frequency of Alcohol Use: None Type of Drug Use: None Exam - Constitutional Vitals: Period Temp Pulse Resp BP Sys/Marin Pulse Ox Last 24 Hr 97.0 F-98.2 F 52-63 16-20 115-197/59-106 88-100 Exam: GENERAL: Patient is in no acute distress. NECK: Neck is supple. There is no JVD. No carotid bruits present. No thyroid masses. CVS: First and second heart sounds are normal. There is no S3 present. Regular rate and rhythm. RESPIRATORY: Lungs are clear to auscultation without any rales or rhonchi. ABDOMEN: Soft and non-tender. Bowel sounds are present. There is no hepatosplenomegaly. EXT: There is no palpable edema. Peripheral pulses are present. Skin: No rashes Central Nervous system: General: Alert, awake and Oriented x 3 Speech: Fluent Comprehension: Intact and normal Facial expressions: Normal Cranial Nerves: CN1/Olfactory: Normal CN II/ Optic: Normal, Visual Mariscal unreliable CN III, and : KAYLEN & EOMI CN V: Normal & intact CN VII: face is symmetric CNVIII: Normal CN XI/X/XI/XII: Intact and Normal Motor: Bulk and Tone is normal. Strength in the right 4-5/5 Strength in the left 4-5/5 Sensory: Unreliable Reflexes: 1+ and symmetrical Cerebellar function: Cannot be assessed Toes: Equivocal Gait: Not tested at this time Results - Labs CBC & BMP: 01/11/17 05:48 01/11/17 05:48 Assessment and Plan (1) Altered mental status Status: Acute Assessment and plan: Etiology is not clear. Differential diagnosis would include acute stroke, metabolic disorder but may be seizure with postictal state. Continue IV Keppra for now Continue aspirin Add Plavix 75 mg daily We will follow-up on MRI and make further decision Thank you for the consult Current Visit: No
--- NOTE | 2017-01-11 13:36 | Magnetic Resonance Report ---
Exam: MR head/brain wo con Date: 01/11/2017 12:48 PM Comparison: 11/09/2015 Indication: Syncope altered mental status Technical: 1.2 Tammy magnet Axial T1 pre-and ADC, DWI, FLAIR, gradient echo and FSE T2 Sagittal T1 precontrast, Coronal FSE T2 Contrast:0 cc Dotarem Findings: Exam reveals decreased signal on the DWI diffusion imaging with some increased signal on the ADC image on the right parietal lobe with area of an old infarction undergoing encephalomalacia change and resolution.. The brainstem exhibit normal signal characteristics. Small defect in the left cerebellum best demonstrated on the gradient echo image suggesting old area of hemorrhagic infarction this measures 8 mm The cerebral hemispheres exhibit small vessel changes as well as the previous infarction in the right parietal lobe. signal characteristics. The corpus callosum is unremarkable. The seventh and eighth cranial nerves and cerebral pontine angles are intact. The pituitary gland, infundibulum and optic chiasm are intact. The paranasal sinuses exhibit normal signal characteristics. The mastoid sinuses are unremarkable. The globes and intra-and extraconal spaces are unremarkable. Impression: 1. Resolving area of infarction and underlying encephalomalacia change developing in the right parietal lobe with diffuse small vessel ischemic change present. 2. Old hemorrhagic infarction in the left cerebellum measuring 8.6 mm corresponding to the calcification in the left cerebellum on CT imaging. 3. Some motion artifact is present particularly on the coronal images. 4. No acute hemorrhage or infarction present. PROCEDURE INTERPRETED AT [facility] DEPARTMENT OF RADIOLOGY Final Report Signed by: Dr. Wesley Kaufman
[2017-01-11] MEDS: PREGABALIN 75 MG CAPSULE PO SCH (21:02)
--- NOTE | 2017-01-12 07:59 | Discharge Summary ---
Hospital Course - Hospital Course Hospital Course: This is a chronically ill 71-year-old female that presented to the ED at [facility] on the morning of January 10, 2017 for the evaluation of altered mental status and weakness. The patient has a medical history significant for coronary artery disease, hypertension, myocardial infarction, transient ischemic attack, cerebrovascular accident, dyslipidemia, [id number] diabetes mellitus, gouty arthritis, nicotine addiction, seizure disorder, and rheumatoid arthritis. Patient surgical history significant for cardiac catheterization with stent placement, left nephrectomy, and hysterectomy. At the time of ED presentation, the patient was altered. Her family was present at bedside service historian. They reported the onset of symptoms this morning. They noticed that the patient was profoundly weak on her left side. They reported that the patient last normal time was around 930 on last night. They have been instructed in the past by the patient's home health nurse of signs and symptoms of neurological abnormalities. They noticed that the left-sided weakness that the patient was experiencing was unusual prompting them to summons EMS for further assistance. The patient was subsequently transported to [facility] for further evaluation. The patient was assessed at the time of ED presentation. The patient was noted to be grossly hypertensive with a blood pressure of 177/105 and mildly bradycardic with a heart rate noted at 55. Labs were obtained which were significant for chloride of 108, BUN 20, creatinine 1.80, and globulin 4.3. Urinalysis was remarkable for urine urobilinogen greater than 2.0. Toxicology was essentially unremarkable and serum alcohol level was less than 15. Chest x- ray was significant for mild eventration right hemidiaphragm and pleural diaphragmatic reaction, degenerative spondylosis change thoracic spine, and no obvious overt congestive failure consolidating infiltrates with mild scarring in the lung rhodes bilaterally. CT head reported no acute hemorrhage, infarction, or mass-effect however, old infarction involving the right parietal lobe and old calcified infarct suspected in the left cerebellum and diffuse small vessel ischemic changes were present. Patient was subsequently admitted to the hospitalist service for continuation of care. A full neurological workup was initiated at the time of admission. Echocardiogram on January 10, 2017 reported normal left ventricular systolic function and ejection fraction of 60%, grade 1/4 diastolic dysfunction, mild mitral and tricuspid regurgitation, and moderate aortic sclerosis without significant stenosis. Ultrasound of carotid duplex bilaterally was significant for 16 -49% stenosis bilaterally. A neurology consultation was requested. On January 11, 2017, MRI of the brain without contrast reported a resolving area of infarction underlying encephalomalacia change developing in the right parietal lobe with diffuse small vessel ischemic change present, old hemorrhagic infarction in the left cerebellum measuring 8.6 mm, and no acute hemorrhage or infarction present. The patient's condition gradually improved. The patient's condition is stable. The patient has not experienced any significant overnight events. Today, we feel that the patient is indeed appropriate for discharge to follow-up with her primary care physician as indicated. As noted by Britney Connor the patient is a chronically ill 71-year-old female who was admitted to the hospital with altered mental status and weakness. She underwent a neurologic evaluation including an MRI of the brain demonstrating no acute abnormalities. She returned to her baseline mental status prior to discharge. At the time of discharge she was stable. Diagnosis - Discharge Diagnosis (1) Diabetes mellitus Status: Acute (2) Essential hypertension Status: Acute (3) Stroke Status: Acute (4) Seizure Status: Acute (5) Nicotine addiction Status: Acute Discharge Plan - Discharge Medications No Action Atenolol/Chlorthalidone [Atenolol-Chlorthalidone 50-25] 1 tablet PO QAM Glimepiride 2 mg PO DAILY W/BREAKFAST Isosorbide Mononitrate [Isosorbide Mononitrate ER] 30 mg PO QAM Metformin HCl 1,000 mg PO BID Nitroglycerin Sl Tab [Nitrostat] 0.4 mg SL Q5M PRN PRN Reason: Chest Pain Pregabalin [Lyrica] 75 mg PO QAM Ranolazine [Ranexa] 500 mg PO BID Valsartan 80 mg PO QAM Aspirin Tab 325 mg PO DAILY #30 tablet Atorvastatin [Lipitor] 20 mg PO QAM amLODIPine [Norvasc] 10 mg PO QAM levETIRAcetam TAB [Keppra Tab] 750 mg PO BID #60 tablet - Follow Up or Referral - Forms/Instructions Exam - Constitutional Vitals: Period Temp Pulse Resp BP Sys/Marin Pulse Ox Last 24 Hr 97.1 F-99.0 F 55-78 18-20 101-134/62-75 90-100 Discharge Results Procedures and tests throughout hospitalization: Pending Orders 01/10/17 16:23 Levetiracetam (Keppra) Stat Labs on day of discharge: Labs from last 24 hours 01/12/17 01/11/17 01/11/17 07:50 19:47 16:20 POC Glucose 70 L 119 H 85 01/11/17 10:57 POC Glucose 104 DS: Provider Date of admission: 01/10/17 12:46 Primary care physician: Linda Colunga Attending physician on admission: Vishal Muhammad Consults: 01/10/17 12:47 Consult to Case Mgmt/Social Srvs [CONS] Routine Reason for Case Mgmt/Social Srvs: Discharge Planning Consult to Occupational Therapy [CONS] Routine Reason for Occupational Therapy: Evaluate and Treat Consult Comment: Stroke Consult to Physical Therapy [CONS] Routine Reason for Physical Therapy: Evaluate and Treat Consult Comment: stroke 01/10/17 12:50 Consult to Physician [CONS] Routine Comment: Consulting Provider: Julio Cesar Titus When should Consulting Provider be notified: Now Consult to Specialist Group: Neurology Person Notified: SHERRILL Date Notified: 01/10/17 Time Notified: 15:18 Discharging clinician: Britney Connor CNP
[2017-01-12] MEDS: amLODIPine 10 MG TABLET PO SCH (08:42)
[2017-01-12] MEDS: ASPIRIN 325 MG TABLET PO SCH (08:42)
[2017-01-12] MEDS: RANOLAZINE 500 MG TABLET PO SCH (08:42)
[2017-01-12] MEDS: ATORVASTATIN 20 MG TABLET PO SCH (08:42)
[2017-01-12] MEDS: buPROPion SR 150 MG TABLET PO SCH (08:42)
[2017-01-12] MEDS: PREGABALIN 75 MG CAPSULE PO SCH (08:43)
[2017-01-12] MEDS: VALSARTAN 80 MG TABLET PO SCH (08:43)
[2017-01-12] MEDS: ISOSORBIDE MONONITRATE 30 MG TABLET PO SCH (08:43)
[2017-01-12] MEDS: ATENOLOL/CHLORTHALIDONE 50-25 MG TABLET PO SCH (08:44)
[2017-01-12] MEDS: INSULIN REGULAR 100 UNIT/ML SUBCUT SCH ×2 (08:45→12:58)
[2017-01-12] MEDS ORDERED: CLOPIDOGREL 75 MG TABLET PO SCH (09:00)
[2017-01-12 13:34] VITALS: BP 129/70
--- NOTE | 2017-01-12 14:26 | Discharge Summary ---
Hospital Course - Hospital Course Hospital Course: This is a chronically ill 71-year-old female that presented to the ED at [facility] on the morning of January 10, 2017 for the evaluation of altered mental status and weakness. The patient has a medical history significant for coronary artery disease, hypertension, myocardial infarction, transient ischemic attack, cerebrovascular accident, dyslipidemia, [id number] diabetes mellitus, gouty arthritis, nicotine addiction, seizure disorder, and rheumatoid arthritis. Patient surgical history significant for cardiac catheterization with stent placement, left nephrectomy, and hysterectomy. At the time of ED presentation, the patient was altered. Her family was present at bedside service historian. They reported the onset of symptoms this morning. They noticed that the patient was profoundly weak on her left side. They reported that the patient last normal time was around 930 on last night. They have been instructed in the past by the patient's home health nurse of signs and symptoms of neurological abnormalities. They noticed that the left-sided weakness that the patient was experiencing was unusual prompting them to summons EMS for further assistance. The patient was subsequently transported to [facility] for further evaluation. The patient was assessed at the time of ED presentation. The patient was noted to be grossly hypertensive with a blood pressure of 177/105 and mildly bradycardic with a heart rate noted at 55. Labs were obtained which were significant for chloride of 108, BUN 20, creatinine 1.80, and globulin 4.3. Urinalysis was remarkable for urine urobilinogen greater than 2.0. Toxicology was essentially unremarkable and serum alcohol level was less than 15. Chest x- ray was significant for mild eventration right hemidiaphragm and pleural diaphragmatic reaction, degenerative spondylosis change thoracic spine, and no obvious overt congestive failure consolidating infiltrates with mild scarring in the lung rhodes bilaterally. CT head reported no acute hemorrhage, infarction, or mass-effect however, old infarction involving the right parietal lobe and old calcified infarct suspected in the left cerebellum and diffuse small vessel ischemic changes were present. Patient was subsequently admitted to the hospitalist service for continuation of care. A full neurological workup was initiated at the time of admission. Echocardiogram on January 10, 2017 reported normal left ventricular systolic function and ejection fraction of 60%, grade 1/4 diastolic dysfunction, mild mitral and tricuspid regurgitation, and moderate aortic sclerosis without significant stenosis. Ultrasound of carotid duplex bilaterally was significant for 16 -49% stenosis bilaterally. A neurology consultation was requested. On January 11, 2017, MRI of the brain without contrast reported a resolving area of infarction underlying encephalomalacia change developing in the right parietal lobe with diffuse small vessel ischemic change present, old hemorrhagic infarction in the left cerebellum measuring 8.6 mm, and no acute hemorrhage or infarction present. The patient's condition gradually improved. The patient's condition is stable. The patient has not experienced any significant overnight events. Today, we feel that the patient is indeed appropriate for discharge to follow-up with her primary care physician as indicated. As noted by Britney Connor the patient is a chronically ill 71-year-old female who was admitted to the hospital with altered mental status and weakness. She underwent a neurologic evaluation including an MRI of the brain demonstrating no acute abnormalities. She returned to her baseline mental status prior to discharge. At the time of discharge she was stable. Specialty Discharge - Follow Up or Referrals Discharge Plan - Discharge Data Disposition: Disch To Home/Self Care Condition at Discharge: Stable Discharge Diet: advance to your usual diet Activity: resume usual activities as tolerated - Discharge Medications New buPROPion SR [Wellbutrin Sr] 150 mg PO DAILY tablet Continue Atenolol/Chlorthalidone [Atenolol-Chlorthalidone 50-25] 1 tablet PO QAM Glimepiride 2 mg PO DAILY W/BREAKFAST Isosorbide Mononitrate [Isosorbide Mononitrate ER] 30 mg PO QAM Metformin HCl 1,000 mg PO BID Nitroglycerin Sl Tab [Nitrostat] 0.4 mg SL Q5M PRN PRN Reason: Chest Pain Pregabalin [Lyrica] 75 mg PO QAM Ranolazine [Ranexa] 500 mg PO BID Valsartan 80 mg PO QAM Aspirin Tab 325 mg PO DAILY #30 tablet Atorvastatin [Lipitor] 20 mg PO QAM amLODIPine [Norvasc] 10 mg PO QAM levETIRAcetam TAB [Keppra Tab] 750 mg PO BID #60 tablet - Follow Up or Referral - Forms/Instructions Instructions: Clopidogrel (By mouth), Ischemic Stroke (DC), Chronic Hypertension (DC) Exam - Constitutional Vitals: Period Temp Pulse Resp BP Sys/Marin Pulse Ox Last 24 Hr 97.4 F-99.0 F 50-67 16-20 101-144/62-72 90-97 Discharge Results Procedures and tests throughout hospitalization: Pending Orders 01/10/17 16:23 Levetiracetam (Keppra) Stat Labs on day of discharge: Labs from last 24 hours 01/12/17 01/12/17 01/11/17 12:19 07:50 19:47 POC Glucose 127 H 70 L 119 H 01/11/17 16:20 POC Glucose 85 DS: Provider Date of admission: 01/10/17 12:46 Primary care physician: Linda Colunga Attending physician on admission: Vishal Muhammad Consults: 01/10/17 12:47 Consult to Case Mgmt/Social Srvs [CONS] Routine Reason for Case Mgmt/Social Srvs: Discharge Planning Consult to Occupational Therapy [CONS] Routine Reason for Occupational Therapy: Evaluate and Treat Consult Comment: Stroke Consult to Physical Therapy [CONS] Routine Reason for Physical Therapy: Evaluate and Treat Consult Comment: stroke 01/10/17 12:50 Consult to Physician [CONS] Routine Comment: Consulting Provider: Julio Cesar Titus When should Consulting Provider be notified: Now Consult to Specialist Group: Neurology Person Notified: SHERRILL Date Notified: 01/10/17 Time Notified: 15:18 Discharging clinician: Vishal Muhammad
[2017-01-12] MEDS ORDERED: levETIRAcetam 500 MG TABLET PO SCH (21:00)
[2017-01-12] MEDS ORDERED: metFORMIN 500 MG TABLET PO SCH (21:00)
[2017-01-13] MEDS ORDERED: GLIMEPIRIDE 2 MG TABLET PO SCH (08:00)
[2017-01-13] MEDS ORDERED: PREGABALIN 75 MG CAPSULE PO SCH (09:00)
== END 2017-01-12 15:05 | disposition home or self-care (01) | DRG 65 ==
LOC: EDBD → EDUNIT# → N.ED 09:30 → N.EDINP 12:46 → N.2E 14:30

== ENCOUNTER 2019-11-09 05:04 | Inpatient (IN) ==
[2019-11-09] MEDS ORDERED: hydrALAZINE 20 MG/1 ML VIAL IV STA (05:21)
[2019-11-09 05:43] LABS: Basophils # 0.1 10*3/uL (0.0-0.2); Basophils % 0.3 % (0.0-0.8); Eosinophils # 0.3 10*3/uL (0.0-0.87); Eosinophils % 1.4 % (0.00-10.9); Hematocrit 51.9 VOL% (35.7-47.0); Hemoglobin 16.2 GM/DL (12.0-16.0); Immature Granulocytes % 0.4 %; Immature Granulocytes Absolute 0.08 #; Lymphocytes # 2.5 10*3/uL (1.4-4.0); Lymphocytes % 13.9 % (21.3-54.2); Mean Corpuscular HGB Conc 31.2 GM/DL (32-36); Mean Corpuscular Volume 98.1 FL (87-102); Mean Platelet Volume 10.8 FL (9.6-12.0); Monocytes % 3.7 % (1.7-12.7); Neutrophils % 80.3 % (38.7-73.9); Platelet Count 269 T/CUMM (130-400); Red Blood Count 5.29 MC/CUMM (3.8-5.5); Red Cell Distribution Width 14.2 % (9.3-17.3); White Blood Count 18.3 T/CUMM (4-12)
[2019-11-09 05:51] LABS: Amorphous Crystals,Urine Occasional /HPF (Few); Apearance,Urine Slightly Hazy (Clear); Bacteria,Urine Occasional /HPF (Few); Bilirubin,Urine Negative (Negative); Blood, Urine Small mg/dL (Negative); Glucose,Urine (UA) >=500 mg/dL (Negative); Ketones,Urine Negative (Negative); Nitrite,Urine Negative (Negative); Protein,Urine >=500 MG/DL; RBC,Urine 11 /HPF (0-4); Squamous Epithelial Cell,Urine Moderate /HPF (0-10); Urine Color Yellow (Yellow); Urine Urobilinogen < 2.0 EU/DL (0.2-1.0); WBC,Urine 1 /HPF (0-6)
[2019-11-09 05:55] LABS: INR 1.1; PT Patient Result 11.3 SECS (9.8-11.9)
[2019-11-09] MEDS ORDERED: LABETALOL 20 MG/4 ML SYRINGE IV STA (06:03)
[2019-11-09] MEDS ORDERED: LABETALOL 20 MG/4 ML SYRINGE IV ONE (06:04)
[2019-11-09 06:09] LABS: Alanine Aminotransferase 22 U/L (13-56); Albumin 4.1 G/DL (3.4-5.0); Alkaline Phosphatase 84 U/L (45-117); Aspartate Amino Transferase 20 U/L (0-37); Bilirubin,Total < 0.39 MG/DL (0.2-1.0); Blood Urea Nitrogen 19 MG/DL (7-18); Calcium 9.8 MG/DL (8.5-10.1); Estimated Glom Filtration Rate 35 ML/MIN; Glucose 294 MG/DL (74-106); Osmolality,Calculated 285.8 MOS/KG (273-304); Total Protein 8.5 G/DL (6.4-8.3)
[2019-11-09] MEDS ORDERED: cefTRIAXone 1,000 MG in SODIUM CHLORIDE 0.9% 100 ML IV STA (06:12)
[2019-11-09 07:32] LABS: Ferritin 121.3 ng/ml (8-252)
[2019-11-09] MEDS ORDERED: LABETALOL 100 MG/20 ML VIAL IV STA (07:56)
[2019-11-09] MEDS ORDERED: GLUCAGON 1 MG VIAL IM PRN (09:05)
[2019-11-09] MEDS ORDERED: ACETAMINOPHEN 325 MG TABLET PO PRN (09:05)
[2019-11-09] MEDS ORDERED: DEXTROSE 50% 25 GM/50 ML VIAL IV PRN (09:05)
[2019-11-09] MEDS ORDERED: ZALEPLON 5 MG CAPSULE PO PRN (09:05)
[2019-11-09] MEDS ORDERED: hydrALAZINE 20 MG/1 ML VIAL IV PRN (09:05)
[2019-11-09] MEDS ORDERED: ONDANSETRON 4 MG/2 ML VIAL IV PRN (09:05)
[2019-11-09] MEDS ORDERED: PROMETHAZINE 25 MG TABLET PO PRN (09:05)
[2019-11-09] MEDS ORDERED: diphenhydrAMINE CAP 25 MG CAPSULE PO PRN (09:05)
[2019-11-09] MEDS ORDERED: MAGNESIUM SULF RIDER 2 GM in PREMIX 1 EACH IV STA (09:08)
[2019-11-09] MEDS ORDERED: carvediloL 3.125 MG TABLET PO STA (09:10)
[2019-11-09 09:37] LABS: Risk Ratio 4.41; Thyroid Stimulating Hormone 1.38 uIU/ml (0.358-3.74)
[2019-11-09] MEDS ORDERED: niCARdipine INJ 25 MG in SODIUM CHLORIDE 0.9% 240 ML IV PRN (10:38)
[2019-11-09] MEDS ORDERED: FUROSEMIDE 40 MG/4 ML VIAL IV STA (10:38)
[2019-11-09] MEDS: hydroCHLOROthiazide 25 MG TABLET PO SCH (10:49)
[2019-11-09] MEDS: ENOXAPARIN 40 MG/0.4 ML SYRINGE SUBCUT SCH (10:55)
[2019-11-09] MEDS ORDERED: niCARdipine 25 MG/10 ML VIAL IV ONE (11:02)
[2019-11-09] MEDS: INSULIN LISPRO 100 UNIT/ML SUBCUT SCH ×3 (12:31→21:25)
[2019-11-09] MEDS ORDERED: NITROGLYCERIN SL 0.4 MG TABLET SL PRN (16:35)
[2019-11-09] MEDS: RANOLAZINE 500 MG TABLET PO SCH (21:25)
[2019-11-09] MEDS: carvediloL 25 MG TABLET PO SCH (21:25)
[2019-11-10 05:36] LABS: Basophils % 0.2 % (0.0-0.8); Hematocrit 47.8 VOL% (35.7-47.0); Hemoglobin 15.8 GM/DL (12.0-16.0); Immature Granulocytes % 0.4 %; Immature Granulocytes Absolute 0.05 #; Lymphocytes # 1.3 10*3/uL (1.4-4.0); Lymphocytes % 9.9 % (21.3-54.2); Mean Corpuscular HGB Conc 33.1 GM/DL (32-36); Mean Corpuscular Volume 92.5 FL (87-102); Mean Platelet Volume 11.4 FL (9.6-12.0); Monocytes % 4.7 % (1.7-12.7); Neutrophils % 84.8 % (38.7-73.9); Platelet Count 231 T/CUMM (130-400); Red Blood Count 5.17 MC/CUMM (3.8-5.5); Red Cell Distribution Width 13.9 % (9.3-17.3); White Blood Count 12.9 T/CUMM (4-12)
[2019-11-10 06:03] LABS: Calcium 9.4 MG/DL (8.5-10.1); Osmolality,Calculated 275.2 MOS/KG (273-304)
[2019-11-10] MEDS: INSULIN LISPRO 100 UNIT/ML SUBCUT SCH ×4 (09:03→20:45)
[2019-11-10] MEDS: ISOSORBIDE MONONITRATE 30 MG TABLET PO SCH (09:04)
[2019-11-10] MEDS: levETIRAcetam 500 MG TABLET PO SCH ×2 (09:04→20:45)
[2019-11-10] MEDS: ATORVASTATIN 20 MG TABLET PO SCH (09:04)
[2019-11-10] MEDS: PANTOPRAZOLE 40 MG TABLET PO SCH (09:04)
[2019-11-10] MEDS: carvediloL 25 MG TABLET PO SCH ×2 (09:04→20:45)
[2019-11-10] MEDS: RANOLAZINE 500 MG TABLET PO SCH ×2 (09:04→20:45)
[2019-11-10] MEDS: PREGABALIN 75 MG CAPSULE PO SCH ×2 (09:04→20:45)
[2019-11-10] MEDS: hydroCHLOROthiazide 25 MG TABLET PO SCH (09:04)
[2019-11-10] MEDS: ASPIRIN 325 MG TABLET PO SCH (09:05)
[2019-11-10] MEDS: ENOXAPARIN 40 MG/0.4 ML SYRINGE SUBCUT SCH (09:05)
[2019-11-10 11:57] LABS: Vitamin B12 570 PG/ML (211-911)
[2019-11-11 08:08] LABS: Osmolality,Calculated 278.5 MOS/KG (273-304)
[2019-11-11] MEDS: ASPIRIN 325 MG TABLET PO SCH (08:28)
[2019-11-11] MEDS: PANTOPRAZOLE 40 MG TABLET PO SCH (08:29)
[2019-11-11] MEDS: ISOSORBIDE MONONITRATE 30 MG TABLET PO SCH (08:30)
[2019-11-11] MEDS: PREGABALIN 75 MG CAPSULE PO SCH ×2 (08:30→21:28)
[2019-11-11] MEDS: carvediloL 25 MG TABLET PO SCH ×2 (08:30→21:28)
[2019-11-11] MEDS: ATORVASTATIN 20 MG TABLET PO SCH (08:30)
[2019-11-11] MEDS: levETIRAcetam 500 MG TABLET PO SCH ×2 (08:30→21:28)
[2019-11-11] MEDS: ENOXAPARIN 40 MG/0.4 ML SYRINGE SUBCUT SCH (08:31)
[2019-11-11] MEDS: RANOLAZINE 500 MG TABLET PO SCH ×2 (08:31→21:28)
[2019-11-11] MEDS: hydroCHLOROthiazide 25 MG TABLET PO SCH (08:31)
[2019-11-11] MEDS: INSULIN LISPRO 100 UNIT/ML SUBCUT SCH ×4 (09:30→21:26)
[2019-11-11] MEDS ORDERED: SODIUM CHLORIDE 0.9% 250 ML IV ONE (12:03)
[2019-11-12 05:41] LABS: Osmolality,Calculated 282.4 MOS/KG (273-304)
[2019-11-12] MEDS: INSULIN LISPRO 100 UNIT/ML SUBCUT SCH ×4 (07:21→21:27)
[2019-11-12] MEDS ORDERED: carvediloL 12.5 MG TABLET PO SCH (07:21)
[2019-11-12] MEDS ORDERED: SODIUM CHLORIDE 0.9% 250 ML IV ONE (07:23)
[2019-11-12] MEDS ORDERED: SODIUM CHLORIDE 0.9% 1,000 ML IV SCH (07:30)
[2019-11-12] MEDS: SODIUM CHLORIDE 0.9% 500 ML IV SCH ×4 (08:07→22:30)
[2019-11-12] MEDS: ASPIRIN 325 MG TABLET PO SCH (08:46)
[2019-11-12] MEDS: ATORVASTATIN 20 MG TABLET PO SCH (08:47)
[2019-11-12] MEDS: PREGABALIN 75 MG CAPSULE PO SCH ×2 (08:47→21:29)
[2019-11-12] MEDS: ISOSORBIDE MONONITRATE 30 MG TABLET PO SCH (08:47)
[2019-11-12] MEDS: levETIRAcetam 500 MG TABLET PO SCH ×2 (08:47→21:29)
[2019-11-12] MEDS: RANOLAZINE 500 MG TABLET PO SCH ×2 (08:48→21:28)
[2019-11-12] MEDS: ENOXAPARIN 40 MG/0.4 ML SYRINGE SUBCUT SCH (08:48)
[2019-11-12] MEDS: PANTOPRAZOLE 40 MG TABLET PO SCH (08:48)
[2019-11-13] MEDS: SODIUM CHLORIDE 0.9% 500 ML IV SCH ×3 (03:08→13:34)
[2019-11-13 07:31] LABS: Calcium 8.5 MG/DL (8.5-10.1); Osmolality,Calculated 287.7 MOS/KG (273-304)
[2019-11-13 07:46] LABS: Calcium 8.5 MG/DL (8.5-10.1); Osmolality,Calculated 287.7 MOS/KG (273-304)
[2019-11-13] MEDS: INSULIN LISPRO 100 UNIT/ML SUBCUT SCH ×3 (09:15→17:39)
[2019-11-13] MEDS: PREGABALIN 75 MG CAPSULE PO SCH (09:19)
[2019-11-13] MEDS: ENOXAPARIN 40 MG/0.4 ML SYRINGE SUBCUT SCH (09:20)
[2019-11-13] MEDS: ASPIRIN 325 MG TABLET PO SCH (09:20)
[2019-11-13] MEDS: RANOLAZINE 500 MG TABLET PO SCH (09:20)
[2019-11-13] MEDS: ISOSORBIDE MONONITRATE 30 MG TABLET PO SCH (09:20)
[2019-11-13] MEDS: levETIRAcetam 500 MG TABLET PO SCH (09:20)
[2019-11-13] MEDS: PANTOPRAZOLE 40 MG TABLET PO SCH (09:20)
[2019-11-13] MEDS: ATORVASTATIN 20 MG TABLET PO SCH (09:20)
[2019-11-13] MEDS ORDERED: LOSARTAN 25 MG TABLET PO SCH (10:00)
[2019-11-13 17:21] VITALS: BP 110/58
== END 2019-11-13 17:37 | disposition home health service (06) | DRG 304 ==
LOC: EDUNIT# → EDBD → N.ED 05:04 → N.EDINP 05:04 → N.TELEN 14:34 → SUATTDRO 11-12 10:02
PROVIDERS: ADMIT Internal Medicine; ATTEND Internal Medicine